=== PATIENT | female | born 1985 | race African-American/Black ===

== ENCOUNTER 2020-03-25 17:11 | Emergency (ER) | payer OTHER, SELFPAY ==
[2020-03-25 17:12] VITALS: BP 172/94; PULSE 99; RESP 16; TEMP 37.6; O2SAT 97
--- NOTE | 2020-03-25 17:16 | ED.SKABFB ---
HPI - Skin/Abscess/Foreign Bdy General Chief complaint: Skin/Abscess/Foreign Body Stated complaint: Bilateral Ear Pain Time Seen by Provider: 03/25/20 17:16 Source: patient Mode of arrival: ambulatory Limitations: no limitations History of Present Illness HPI narrative: Patient is a 35-year-old who presents for evaluation of bilateral earring problem. Patient had the top of her cartilage of both ears pierced at the end of February, has been rotating the backs of the earrings, but is now unable to remove the earrings because she thinks some skin has overgrown the backs. Patient does not have a history of keloid formation. She does not have actual ear pain or discharge. No bleeding from the site. Patient is requesting her earrings be removed. Related Data Allergies Allergy/AdvReac Type Severity Reaction Status Date / Time Penicillins Allergy Mild swelling Verified 03/24/20 13:38 and rash shellfish derived Allergy Mild swelling Verified 03/24/20 13:38 and rash Review of Systems Review of Systems: Narrative: CONSTITUTIONAL: Denies fever CARDIOVASCULAR: Denies chest pain RESPIRATORY: Denies cough GASTROINTESTINAL: Denies abdominal pain SKIN: Denies rash MUSCULOSKELETAL: Denies back pain NEUROLOGIC: Denies headache PMFSH Past Medical History Medical History Asthma Gestational hypertension Surgical History Surgical History (Updated 03/25/20 @ 17:29 by Danika Colon MD) Hx of section Family History Family History (Updated 03/24/20 @ 14:29 by Eve Lambert MD) Mother Family history of multiple sclerosis, Onset Age: 50 Father Hypertension Grandparent Breast cancer Social History Social History Social History: but at the moment Smoking status: Never smoker Second hand tobacco smoke exposure: No Alcohol intake: current Drinks per week: 1 Substance use: never Substance use type: does not use Additional living arrangements comments: pt lives with her children Gender identity (if verbalized by the patient): Female Exam Narrative: Exam Narrative: GENERAL: Awake, alert, conversant HEAD: Normocephalic, atraumatic. EYES: PERRLA and EOMI. ENT: Nares clear, no rhinorrhea or epistaxis. Mucous membranes moist. Earring back, partially embedded in upper ear cartilage. No discharge, no bleeding. No wounds. No edema of the pinna. NECK: Supple. CHEST: No respiratory distress, breathing even and non labored HEART: Regular rate, sinus rhythm ABDOMEN:Non distended, non tender EXTREMITIES: Normal range of motion. No edema. SKIN: Warm, dry, no rash. NEURO:No focal deficits. Alert and oriented x3 Course Vital Signs Vital signs: Vital Signs Temperature 37.6 C 03/25/20 17:12 Pulse Rate 99 03/25/20 17:12 Respiratory Rate 16 03/25/20 17:12 Blood Pressure 172/94 H 03/25/20 17:12 Pulse Oximetry 97 03/25/20 17:12 Temperature 37.6 C 03/25/20 17:12 Pulse Rate 99 03/25/20 17:12 Respiratory Rate 16 03/25/20 17:12 Blood Pressure 172/94 H 03/25/20 17:12 Pulse Oximetry 97 03/25/20 17:12 Procedures Nerve Block Nerve Block 1: Nerve block date: 03/25/20 Nerve block time: 17:31 Time out performed: Yes Local Anesthetic: lidocaine 1% Amount of anesthesia used (mL): 2 Side: left and right Nerve Blocks: other (temporal auricular nerve block) Procedure Successful: Yes Patient Tolerated Procedure: well and no complications Complications: none MDM - Skin/Abscess/Foreign Bdy MDM Narrative Medical decision making narrative: Patient presented with embedded earring backs on bilateral upper ear piercings. We performed catholic auricular block, and they were able to remove these embedded earring backs. No sign of infection. Patient advised to keep wound area clean
== END 2020-03-25 17:57 | disposition home or self-care (01) ==
LOC: ANHED 17:34
PROVIDERS: Emergency Provider Emergency Medicine; PCP Family Medicine
DX: S01.342A Puncture wound with foreign body of left ear, initial encounter (principal); S01.341A Puncture wound with foreign body of right ear, initial encounter; X58.XXXA Exposure to other specified factors, initial encounter; J45.909 Unspecified asthma, uncomplicated
CPT/HCPCS: 64999; 99282

== ENCOUNTER 2020-12-19 20:50 | Emergency (ER) | payer OTHER, SELFPAY ==
--- NOTE | ~2020-12-19 | XR_ITS ---
XR chest 2V DATE: 12/19/2020 22:33 INDICATION: Cough and fever for 2 days. Shortness of breath. History of asthma. TECHNIQUE: PA and lateral views COMPARISON: 08/08/2016 CT pulmonary scan FINDINGS: Normal heart size. No hilar or mediastinal enlargement. Mild atelectasis or infiltrate is suggested at the lung bases. Otherwise no pulmonary infiltrate or c onsolidation, pleural effusion or pulmonary vascular congestion or pneumothorax is evident otherwise. IMPRESSION: Mild infiltrate or atelectasis at both lung bases Reviewed, dictated and finalized at location A.
[2020-12-19 20:57] VITALS: BP 145/97; PULSE 108; RESP 17; TEMP 37.3; O2SAT 98
--- NOTE | 2020-12-19 21:04 | PC.NURSE ---
Pt presents to ED with complaint of body aches and chills that initially onset on Monday. Pt states she has also been experiencing sob and cough with deep inhalation. Pt denies sick contacts, nvd, fever and chest pain at this time. Pt admits to hx of asthma and denies use of inhaler at this time. O2 saturation 96% on room air and breathing noted to be even and unlabored. 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 Pt noted to be alert and oriented x4 and in no obvious distress.
[2020-12-19 21:10] VITALS: BP 130/86; PULSE 109; RESP 18; TEMP 38.4; O2SAT 96
--- NOTE | 2020-12-19 21:53 | PC.NURSE ---
EDMD presented to bedside.
--- NOTE | 2020-12-19 22:17 | PC.NURSE ---
Covid specimen collected and sent to lab.
[2020-12-19] MEDS: ACETAMINOPHEN 500 MG TABLET 1000 MG PO (22:24)
--- NOTE | 2020-12-19 22:29 | PC.NURSE ---
Pt to xray via wheelchair.
[2020-12-19 22:33] LABS: Basophils Percent Auto 0.2 % (0.2-1.2); Hematocrit 38.6 % (37.0-47.0); Hemoglobin 12.5 g/dL (12.0-15.0); Immature Granulocyte Absolute 0.01 K/mm3 (0.00-0.031); Immature Granulocyte Percent A 0.2 % (0-0.5); Lymphocytes Absolute Auto 1.27 K/mm3 (0.9-3.2); Lymphocytes Percent Auto 31.5 % (18.3-44.2); Mean Corpuscular HGB Conc 32.4 g/dl (32-36); Mean Corpuscular Hemoglobin 27.5 pg (26-34); Mean Platelet Volume 10.7 fl (7.4-10.4); Monocytes Absolute Auto 0.4 K/mm3 (0.1-0.6); Monocytes Percent Auto 9.7 % (2.6-8.5); Neutrophils Absolute Auto 2.3 K/mm3 (1.3-6.7); Neutrophils Percent Auto 57.4 % (45.5-73.1); Platelet Count Result 198 k/mm3 (150-375); Red Blood Count 4.54 M/mm3 (4.2-5.4)
--- NOTE | 2020-12-19 23:06 | ED.GENADULT ---
HPI - General Adult General Chief complaint: Unspecified Stated complaint: sore throat, chills Time Seen by Provider: 12/19/20 21:24 Source: patient Mode of arrival: ambulatory Limitations: no limitations History of Present Illness HPI narrative: 35-year-old female History of hypertension on hydrochlorothiazide Importantly she has not been immunized against COVID-19 She complains of a 1 day history of chest tightness dry cough low-grade fever sore throat and chills She has not found her sense of taste to be affected at this point She has no GI symptoms and no symptoms Related Data Allergies Allergy/AdvReac Type Severity Reaction Status Date / Time Penicillins Allergy Mild swelling Verified 12/19/20 20:57 and rash shellfish derived Allergy Mild swelling Verified 12/19/20 20:57 and rash Review of Systems Review of Systems: All systems reviewed & are unremarkable except as noted in HPI and below Constitutional: Constitutional: Reports no additional constitutional complaints, Denies chills, Reports fever(s) and Denies headache(s) Eyes: Eyes: Reports no additional eye complaints and Denies change in vision ENT: Denies headache(s) and Reports sore throat Cardiovascular: Cardiovascular: Denies chest pain and Reports dyspnea Respiratory: Respiratory: Reports cough and Reports dyspnea Gastrointestinal: Gastrointestinal: Denies abdominal pain, Denies diarrhea and Denies vomiting Genitourinary: Genitourinary: Denies urinary frequency and Denies dysuria Musculoskeletal: Musculoskeletal: Denies deformity, Denies arthralgias, Denies joint swelling and Denies numbness Integumentary/Breasts: Skin/Breast: Denies rash and Denies wounds Neurologic: Denies headache(s), Denies focal weakness and Denies numbness Psychiatric: Psychiatric: Reports no additional psychiatric complaints Endocrine: Endocrine: Reports no additional endocrine complaints Hematologic/Lymphatic: Hematologic/Lymphatic: Reports no additional hematologic/lymphatic complaints Allergic/Immunologic: Allergic/Immunologic: Reports no additional allergic/immunologic complaints [facility] Past Medical History Medical History (Updated 12/19/20 @ 23:05 by Raulito Serra MD) Asthma Gestational hypertension Surgical History Surgical History Hx of section Family History Family History Mother Family history of multiple sclerosis, Onset Age: 50 Father Hypertension Grandparent Breast cancer Social History Social History (Updated 10/09/20 @ 07:41 by Felicitas Blanc CMA) Social History: but at the moment Smoking status: Never smoker Second hand tobacco smoke exposure: No Alcohol intake: current Drinks per week: 1 Substance use: never Substance use type: does not use Additional living arrangements comments: pt lives with her children Gender identity (if verbalized by the patient): Female Exam Const: General: cooperative and no acute distress Orientation/consciousness: patient oriented x3 (alert) HENMT: Head: normal to inspection, normocephalic and atraumatic Ears: external ears normal and TM's normal bilaterally General nose exam: no epistaxis Mouth: Yes oropharynx normal and Yes moist mucous membranes Eyes: Conjunctivae: conjunctivae normal EOM: EOMs intact bilaterally Neck: Neck: normal visual inspection, supple and no JVD Resp: Effort & Inspection: normal respiratory effort and not labored Auscultation: no rales, no rhonchi, no wheezes and other (BS =) Cardio: Rate: regular rate Rhythm: regular rhythm Heart sounds: no murmurs GI: GI Palp: Yes Soft to palpation and No Tenderness to palpation present (GI) Skin: General skin exam: normal color and no rashes or lesions noted Neuro: General: patient oriented x3 (alert) and moves all extremities Speech: no
[2020-12-19 23:07] VITALS: TEMP 37.3
--- NOTE | 2020-12-19 23:10 | PC.NURSE ---
Pt resting on cart talking on phone to mom. Pt denies all pain and discomfort at this time and afebrile with temp of 99.1. Pt advised to press call button for assistance.
[2020-12-19 23:29] VITALS: BP 139/93; PULSE 92; RESP 21; TEMP 37.7; O2SAT 98
[2020-12-19 23:30] VITALS: BP 139/93; PULSE 92; RESP 21; TEMP 37.7; O2SAT 98
[2020-12-21 18:48] LABS: SARS-CoV-2 RNA PCR Positive
== END 2020-12-19 23:38 | disposition home or self-care (01) ==
PROVIDERS: Emergency Provider Emergency Medicine; PCP Family Medicine
DX: U07.1 COVID-19 (principal); J45.909 Unspecified asthma, uncomplicated
CPT/HCPCS: 36415; 71046; 85025; 99283; A9270; C9803; U0003; U0005

== ENCOUNTER 2022-03-25 11:21 | Outpatient (CLI) | payer OTHER, SELFPAY ==
--- NOTE | ~2022-03-25 | US_ITS ---
EXAMINATION: US transvaginal DATE: 03/25/2022 11:40 INDICATION: Other specified noninflammatory disorders of the cervix, menorrhagia TECHNIQUE: Multiple endovaginal sonographic images of the pelvis were obtained. COMPARISON: 10/05/2017 FINDINGS: The uterus measures 9.9 x 6 x 7.2 cm. The endometrial complex measures 7 mm. The right ovar y measures 3.5 x 1.7 x 1.8 cm. The left ovary measures 2.6 x 1.5 x 2 cm. There is normal vascular grupo w in the ovaries. There is no free fluid in the pelvis. IMPRESSION: 1. No sonographic correlate for the patient's symptoms. Reviewed, dictated and finalized at location A.
== END 2022-03-25 11:22 ==
LOC: MICIMG 11:22
PROVIDERS: PCP Family Medicine; Visit Provider Family Medicine
DX: N88.8 Other specified noninflammatory disorders of cervix uteri (principal)
CPT/HCPCS: 76830

== ENCOUNTER 2022-09-11 08:35 | Emergency (ER) | payer OTHER, SELFPAY ==
[2022-09-11 08:43] VITALS: BP 143/78; PULSE 118; RESP 18; TEMP 38.1; O2SAT 97
[2022-09-11] MEDS: ONDANSETRON HCL ODT 4 MG TABLET PO (08:58)
[2022-09-11] MEDS: KETOROLAC (*BKC) 60 MG/2 ML VIAL IM (08:58)
[2022-09-11 09:19] LABS: Strep Group A RT-PCR DETECTED (Negative)
[2022-09-11 09:37] LABS: Influenza A QL RT-PCR Negative (Negative); Influenza B QL RT-PCR Negative (Negative); SARS-CoV-2 RNA PCR Negative
--- NOTE | 2022-09-11 09:44 | ED.GENADULT ---
HPI - General Adult General Chief complaint: Unspecified Stated complaint: fever Time Seen by Provider: 09/11/22 08:48 Source: patient and RN notes reviewed Mode of arrival: ambulatory Limitations: no limitations History of Present Illness HPI narrative: This is a 37 year old female who presents for evaluation of sore throat. She states yesterday she developed nausea, vomiting and body aches. She woke up with sore throat and pain with swallowing today. She last took ibuprofen last night. She denies any vomiting today. She denies cough, abdominal pain or diarrhea. Her son was found to be positive for strep and flu last week. Related Data Allergies Allergy/AdvReac Type Severity Reaction Status Date / Time Penicillins Allergy Mild swelling Verified 09/11/22 08:49 and rash shellfish derived Allergy Mild swelling Verified 09/11/22 08:49 and rash Review of Systems Constitutional: Constitutional: Reports body ache(s), Reports fever(s) and Denies weakness ENT: Reports sore throat Cardiovascular: Cardiovascular: Denies syncope, Denies rapid heart rate, Denies irregular heart rhythm, Denies leg edema and Denies dyspnea Respiratory: Respiratory: Denies chest congestion, Denies hemoptysis, Denies excessive phlegm production and Denies dyspnea Gastrointestinal: Gastrointestinal: Denies abdominal pain, Denies hematochezia, Denies diarrhea, Reports nausea and Reports vomiting Genitourinary: Genitourinary: Denies hematuria and Denies dysuria Musculoskeletal: Musculoskeletal: Denies joint swelling, Denies loss of height and Denies muscle weakness Neurologic: Denies syncope, Denies focal weakness and Denies weakness PMF Past Medical History Medical History (Updated 09/11/22 @ 09:57 by Johanna Fall MD) Asthma Cluster headache syndrome, not intractable COVID-19 Dizziness Essential (primary) hypertension Female gynecomastia FHx: brain cancer Gestational hypertension Iron deficiency anemia due to chronic blood loss Longitudinal melanonychia Major depressive disorder, single episode, moderate Pneumonia due to COVID-19 virus Severe obesity (BMI 35.0-35.9 with comorbidity) Weight gain Surgical History Surgical History Hx of section Family History Family History Mother Family history of multiple sclerosis, Onset Age: 50 Father Hypertension Grandparent Breast cancer Social History Social History (Updated 05/20/22 @ 09:28 by Lianet Iraheta) Social History: Smoking status: Never smoker Second hand tobacco smoke exposure: No Alcohol intake: current Alcohol use details: Occasionally Substance use: never Substance use type: does not use Living arrangements: with family Occupation/Education: occupation Gender identity (if verbalized by the patient): Female Sexual Orientation (if Verbalized by the Patient): Straight or Heterosexual Exam Const: General: cooperative, healthy appearing, comfortable, no acute distress and alert Orientation/consciousness: patient oriented x3 Limitations: no limitations HENMT: Head: normal to inspection Ears: hearing grossly normal bilaterally and TM's normal bilaterally Face/Nose/Sinus: Normal external nose present Face and sinus: normal facial exam, sinuses nontender and face symmetric Mouth: Yes lip normal, Yes tongue normal and Yes moist mucous membranes Teeth and gingiva: dentition normal Throat: uvula midline and abnormal tonsil bilateral erythema and exudates Eyes: General: appearance normal, both eyes and all related structures EOM: EOMs intact bilaterally Chest: Chest palpation & inspection: normal inspection of the chest Resp: Effort & Inspection: normal respiratory effort and able to speak in complete sentences Auscultation: clear to auscultation bilaterally Cardio: Jugular venous distension: no JVD Back/Spine
[2022-09-11] MEDS: AZITHROMYCIN 250 MG TABLET 500 MG PO (09:57)
[2022-09-11 10:08] VITALS: BP 128/78; PULSE 93; RESP 16; O2SAT 96
== END 2022-09-11 10:14 | disposition home or self-care (01) ==
PROVIDERS: Emergency Provider General Practice; PCP Family Medicine
DX: J02.0 Streptococcal pharyngitis (principal); Z20.822 Contact with and (suspected) exposure to COVID-19; J45.909 Unspecified asthma, uncomplicated; I10 Essential (primary) hypertension; D50.0 Iron deficiency anemia secondary to blood loss (chronic); E66.01 Morbid (severe) obesity due to excess calories; Z68.33 Body mass index [BMI] 33.0-33.9, adult; Z86.16 Personal history of COVID-19; Z87.01 Personal history of pneumonia (recurrent)
CPT/HCPCS: 87636; 87651; 96372; 99284; A9270; J1100; J1885

== ENCOUNTER 2023-03-09 20:59 | Emergency (ER) | payer OTHER, SELFPAY ==
--- NOTE | ~2023-03-09 | XR_ITS ---
EXAMINATION: XR chest 2V DATE: 03/09/2023 21:26 INDICATION: Left-sided chest pain TECHNIQUE: PA and lateral views of the chest are obtained. COMPARISON: 12/19/2020 FINDINGS: The lungs are free of acute opacities. No pleural effusion or pneumothorax. The cardiomedia stinal silhouette is normal. There is mild thoracic spondylosis. IMPRESSION: 1. No acute cardiopulmonary abnormality. Reviewed, dictated and finalized at location F.
--- NOTE | 2023-03-09 21:00 | ECG_ITS ---
Measurements Intervals [place] Rate: 84 P: 51 TX: 147 QRS: 14 QRSD: 102 T: 15 QT: 369 QTc: 437 Interpretive Statements SINUS RHYTHM NORMAL ELECTROCARDIOGRAM NO PREVIOUS ECG AVAILABLE FOR COMPARISON Electronically Signed On 03-10-2023 12:56:09 CDT by Christopher Medellin M.D.
[2023-03-09 21:13] VITALS: BP 140/102; PULSE 84; RESP 15; TEMP 36.6; O2SAT 97
[2023-03-09 21:27] LABS: Basophils Percent Auto 0.4 % (0.2-1.2); Eosinophils Absolute Auto 0.3 K/mm3 (0-0.3); Eosinophils Percent Auto 3.5 % (0-4.4); Hematocrit 35.9 % (37.0-47.0); Hemoglobin 11.3 g/dL (12.0-15.0); Immature Granulocyte Absolute 0.02 K/mm3 (0.00-0.031); Immature Granulocyte Percent A 0.2 % (0-0.5); Lymphocytes Absolute Auto 2.87 K/mm3 (0.9-3.2); Lymphocytes Percent Auto 29.3 % (18.3-44.2); Mean Corpuscular HGB Conc 31.5 g/dl (32-36); Mean Corpuscular Hemoglobin 27.1 pg (26-34); Mean Corpuscular Volume 86.1 fl (80-100); Mean Platelet Volume 9.6 fl (7.4-10.4); Monocytes Percent Auto 9.8 % (2.6-8.5); Neutrophils Absolute Auto 5.6 K/mm3 (1.3-6.7); Neutrophils Percent Auto 56.8 % (45.5-73.1); Platelet Count Result 313 k/mm3 (150-375); Red Blood Count 4.17 M/mm3 (4.2-5.4); Red Cell Distribution Width 15.9 % (11.5-14.5); White Blood Count 9.8 K/mm3 (4.5-10.0)
[2023-03-09 21:41] LABS: Alanine Aminotransferase 17 U/L (6-35); Albumin Level 4.3 g/dL (3.5-5.1); Alkaline Phosphatase 66 U/L (38-126); Anion Gap 7 mmol/L (8-16); Aspartate Amino Transferase 28 U/L (14-36); Bilirubin,Total 0.4 mg/dL (0.2-1.3); Blood Urea Nitrogen 16 mg/dL (7-17); Calcium 8.9 mg/dL (8.4-10.2); Carbon Dioxide 29 mmol/L (22-30); Chloride 103 mmol/L (98-107); Estimated CRCL calculation 89 ml/min; Estimated Glomerular Filt Rate > 60; Glucose 88 mg/dL (65-110); Lipase 110 U/L (23-300); Potassium 3.3 mmol/L (3.4-5.0); Sodium 139 mmol/L (137-145)
[2023-03-09 21:47] LABS: Partial Thromboplastin Time 27.6 SECONDS (22.3-36.8); Prothrombin Time 13.2 Seconds (11.1-14.7)
[2023-03-09 21:53] LABS: Troponin I < 0.012 ng/mL (0.000-0.034)
[2023-03-09 22:00] VITALS: PULSE 74
[2023-03-09] MEDS: ASPIRIN 81 MG CHEWABLE TABLET 324 MG PO (22:28)
[2023-03-09] MEDS: KETOROLAC 30 MG/ML VIAL (*BKC) IV PUSH (22:28)
--- NOTE | 2023-03-09 22:55 | ED.GENADULT ---
HPI - General Adult General Chief complaint: Chest Pain Stated complaint: chest pain Time Seen by Provider: 03/09/23 22:08 History of Present Illness HPI narrative: Patient is a 38-year-old female who presents emerged department with chief complaint of chest pain patient reports that she started having a sharp pleuritic pain in the left side of her chest reports is worse with inspiration and improved with rest. Patient states she had no trauma reports no prior cardiac history does have a history of hypertension. Related Data Allergies Allergy/AdvReac Type Severity Reaction Status Date / Time Penicillins Allergy Mild swelling Verified 03/09/23 22:30 and rash shellfish derived Allergy Mild swelling Verified 03/09/23 22:30 and rash Review of Systems Review of Systems: A 10 system review of systems was completed on the patient and is negative except for what is stated in the HPI. Nursing and ancillary documentation was reviewed. [facility] Past Medical History Medical History Asthma Cluster headache syndrome, not intractable COVID-19 Dizziness Essential (primary) hypertension Female gynecomastia FHx: brain cancer Gestational hypertension Iron deficiency anemia due to chronic blood loss Longitudinal melanonychia Major depressive disorder, single episode, moderate Pneumonia due to COVID-19 virus Severe obesity (BMI 35.0-35.9 with comorbidity) Weight gain Surgical History Surgical History Hx of section Family History Family History Mother Family history of multiple sclerosis, Onset Age: 50 Father Hypertension Grandparent Breast cancer Social History Social History Social History: Smoking status: Never smoker Second hand tobacco smoke exposure: No Alcohol intake: current Alcohol use details: Occasionally Substance use: never Substance use type: does not use Lack of Transportation: No Lack of Food: Never True Current Housing: I Have Housing Concerned About Future Housing: No Difficulty Paying Gas/Electric Bills: No Difficulty Paying for Meds: No Currently Unemployed: No Education: Decline to Answer Difficulty w/ Childcare or Family Care: No Living arrangements: with family Occupation/Education: occupation Gender identity (if verbalized by the patient): Female Sexual Orientation (if Verbalized by the Patient): Straight or Heterosexual Exam Narrative: GENERAL: Well-appearing, well-nourished, and in no acute distress. HEAD: Normocephalic, atraumatic. EYES: PERRLA and EOMI. ENT: Nares clear, no rhinorrhea or epistaxis. Mucous membranes moist. NECK: Supple. CHEST: Clear to auscultation. No respiratory distress. Chest wall is tender to palpation in the left sternal border HEART: Regular rate and rhythm. No murmur heard. Normal peripheral pulses. ABDOMEN: Soft, nontender, nondistended, normal active bowel sounds. EXTREMITIES: Normal range of motion. No edema. SKIN: Warm, dry, no rash. NEURO: No focal deficits. Alert and oriented x3. PSYCH: Normal mood and affect. Course Vital Signs Vital signs: Vital Signs Temperature 36.6 C 03/09/23 21:13 Pulse Rate 84 03/09/23 21:13 Respiratory Rate 15 03/09/23 21:13 Blood Pressure 140/102 H 03/09/23 21:13 Pulse Oximetry 97 03/09/23 21:13 Oxygen Delivery Room Air 03/09/23 21:13 Temperature 36.6 C 03/09/23 21:13 Pulse Rate 74 03/10/23 00:37 Respiratory Rate 17 03/10/23 00:37 Blood Pressure 129/74 03/10/23 00:37 Pulse Oximetry 98 03/10/23 00:37 Oxygen Delivery Room Air 03/09/23 22:02 Medical Decision Making [facility] Narrative Medical decision making narrative: Differential diagnosis includes chest wal
[2023-03-10 00:37] VITALS: BP 129/74; PULSE 74; RESP 17; O2SAT 98
[2023-03-10 00:51] LABS: Troponin I < 0.012 ng/mL (0.000-0.034)
== END 2023-03-10 01:52 | disposition home or self-care (01) ==
PROVIDERS: Emergency Provider Emergency Medicine; PCP Family Medicine
DX: R07.89 Other chest pain (principal); J45.909 Unspecified asthma, uncomplicated
CPT/HCPCS: 36415; 71046; 80053; 83690; 84484; 85025; 85610; 85730; 93005; 96374; 99284; A9270; J1885

== ENCOUNTER 2023-09-04 23:28 | Emergency (ER) | payer OTHER, SELFPAY ==
--- NOTE | ~2023-09-04 | XR_ITS ---
Clinical Indication: Shortness of breath PA and lateral views of the chest: Comparison: 03/09/2023 Findings: The lungs are clear, without evidence of focal consolidation or pleural effusion. Cardiome diastinal silhouette is within normal limits. Bones and soft tissues are unremarkable. Impression: Normal chest. Reviewed, dictated and finalized at [facility]. ENTATION DESIGNER Impression: Normal chest.
[2023-09-04 23:38] VITALS: BP 140/96; PULSE 73; RESP 18; TEMP 36.8; O2SAT 98
--- NOTE | 2023-09-04 23:44 | ECG_ITS ---
Measurements Intervals [place] Rate: 72 P: 49 ND: 152 QRS: 7 QRSD: 99 T: 3 QT: 376 QTc: 411 Interpretive Statements SINUS RHYTHM VOLTAGE CRITERIA FOR LVH NONSPECIFIC T-WAVE ABNORMALITY- ANTERIOR LEADS BORDERLINE ECG COMPARED TO ECG 03/09/2023 21:08:16 NO SIGNIFICANT CHANGES Electronically Signed On 09-05-2023 6:26:25 OPERATOR ASSISTANT I CEMENTING by Chip Yu D.O.
--- NOTE | 2023-09-04 23:58 | PC.NURSE ---
Pt refused COVID swab, stating I know I dont have COVID
[2023-09-05 00:08] LABS: Basophils Absolute Auto 0.1 K/mm3 (0.0-0.1); Basophils Percent Auto 0.7 % (0.2-1.2); Eosinophils Absolute Auto 0.3 K/mm3 (0-0.3); Eosinophils Percent Auto 4.2 % (0-4.4); Hematocrit 36.7 % (37.0-47.0); Hemoglobin 11.3 g/dL (12.0-15.0); Immature Granulocyte Absolute 0.01 K/mm3 (0.00-0.031); Immature Granulocyte Percent A 0.1 % (0-0.5); Lymphocytes Absolute Auto 2.83 K/mm3 (0.9-3.2); Lymphocytes Percent Auto 41.2 % (18.3-44.2); Mean Corpuscular HGB Conc 30.8 g/dl (32-36); Mean Corpuscular Hemoglobin 26.8 pg (26-34); Mean Corpuscular Volume 87.2 fl (80-100); Mean Platelet Volume 10.1 fl (7.4-10.4); Monocytes Absolute Auto 0.5 K/mm3 (0.1-0.6); Monocytes Percent Auto 6.6 % (2.6-8.5); Neutrophils Absolute Auto 3.2 K/mm3 (1.3-6.7); Neutrophils Percent Auto 47.2 % (45.5-73.1); Platelet Count Result 282 k/mm3 (150-375); Red Blood Count 4.21 M/mm3 (4.2-5.4); Red Cell Distribution Width 16.1 % (11.5-14.5); White Blood Count 6.9 K/mm3 (4.5-10.0)
[2023-09-05 00:20] LABS: Alanine Aminotransferase 16 U/L (6-35); Albumin Level 3.8 g/dL (3.5-5.1); Alkaline Phosphatase 78 U/L (38-126); Anion Gap 7 mmol/L (8-16); Aspartate Amino Transferase 21 U/L (14-36); Bilirubin,Total 0.4 mg/dL (0.2-1.3); Blood Urea Nitrogen 8 mg/dL (7-17); Calcium 8.8 mg/dL (8.4-10.2); Carbon Dioxide 23 mmol/L (22-30); Chloride 108 mmol/L (98-107); Estimated CRCL calculation 115 ml/min; Estimated Glomerular Filt Rate > 60; Glucose 112 mg/dL (65-110); Potassium 3.3 mmol/L (3.4-5.0); Sodium 138 mmol/L (137-145)
[2023-09-05 02:16] VITALS: BP 141/99; PULSE 79; RESP 18; O2SAT 100
[2023-09-05 02:17] VITALS: PULSE 72
--- NOTE | 2023-09-05 02:18 | ED.GENADULT ---
HPI - General Adult General Chief complaint: Shortness of Breath/Dyspnea Stated complaint: SOB Time Seen by Provider: 09/05/23 01:59 History of Present Illness HPI narrative: this is a 38-year-old female presenting with chief complaint of shortness of breath. Patient says started yesterday while she was trying to go to bed. It is a tightness across her chest. It is 6/10 intensity comes and goes. She has had this multiple times in the past since she had COVID in 2020. It typically improves with breathing treatments. She does not have any breathing treatments at home. She denies fever chills cough nausea vomiting diarrhea, abdominal pain or lower extremity edema. Related Data Allergies Allergy/AdvReac Type Severity Reaction Status Date / Time Penicillins Allergy Mild swelling Verified 07/06/23 08:39 and rash shellfish derived Allergy Mild swelling Verified 07/06/23 08:39 and rash PMFSH Past Medical History Medical History Anal irritation Asthma Cluster headache syndrome, not intractable COVID-19 Dizziness Essential (primary) hypertension Female gynecomastia FHx: brain cancer Gestational hypertension Iron deficiency anemia due to chronic blood loss Longitudinal melanonychia Major depressive disorder, single episode, moderate Menorrhagia Pneumonia due to COVID-19 virus Severe obesity (BMI 35.0-35.9 with comorbidity) Strep throat Stress at home Thrush, oral Vaginal suzy Weight gain Well woman exam with routine gynecological exam Surgical History Surgical History Hx of section Family History Family History Mother Family history of multiple sclerosis, Onset Age: 50 Father Hypertension Grandparent Breast cancer Social History Social History Social History: Smoking status: Never smoker Second hand tobacco smoke exposure: No Alcohol intake: current Alcohol use details: Occasionally Substance use: never Substance use type: does not use Lack of Transportation: No Lack of Food: Never True Current Housing: I Have Housing Concerned About Future Housing: No Difficulty Paying Gas/Electric Bills: No Difficulty Paying for Meds: No Currently Unemployed: No Education: Decline to Answer Difficulty w/ Childcare or Family Care: No Living arrangements: with family Occupation/Education: occupation 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 polite and pleasant during the interview Head: atraumatic. EYES: EOMI, NOSE: Atraumatic NECK: Trachea midline RESPIRATORY: No increased rate of breathing , speaking in full sentences, clear auscultation CARDIOVASCULAR: RRR, no peripheral edema ABDOMINAL: Non-distended MUSCULOSKELETAl: No obvious deformities NEURO: Alert. Moving 4/4 extremities SKIN:: Warm, dry. Normal color PSYCHIATRIC: Normal affect Course Vital Signs Vital signs: Vital Signs Temperature 98.2 F 09/04/23 23:38 Pulse Rate 73 09/04/23 23:38 Respiratory Rate 18 09/04/23 23:38 Blood Pressure 140/96 H 09/04/23 23:38 Pulse Oximetry 98 09/04/23 23:38 Oxygen Delivery Room Air 09/04/23 23:38 Temperature 98.2 F 09/04/23 23:38 Pulse Rate 72 09/05/23 02:17 Respiratory Rate 18 09/05/23 02:16 Blood Pressure 141/99 H 09/05/23 02:16 Pulse Oximetry 100 09/05/23 02:16 Oxygen Delivery Room Air 09/05/23 02:16 Medical Decision Making MDM Narrative Medical decision making narrative: -Course: 38-year-old female presenting shortness of breath. No objective signs of dyspnea on physical exam or vi
[2023-09-05 02:30] VITALS: PULSE 63; RESP 22
[2023-09-05] MEDS: ALBUTEROL SULFATE NEB 2.5 MG/3 ML INH 5 MG INHALATION (02:30)
[2023-09-05] MEDS: IPRATROPIUM BR 0.02% INH SOLN 0.5 MG/2.5 ML VIAL 1 MG INHALATION (02:30)
[2023-09-05 02:56] VITALS: PULSE 73; RESP 20
[2023-09-05 03:15] VITALS: BP 156/98; PULSE 86; RESP 19; O2SAT 98
== END 2023-09-05 03:15 | disposition home or self-care (01) ==
LOC: ANHED 09-05 02:30
PROVIDERS: Emergency Provider Emergency Medicine; PCP Family Medicine
DX: R06.00 Dyspnea, unspecified (principal); I10 Essential (primary) hypertension
CPT/HCPCS: 36415; 71046; 80053; 85025; 93005; 94640; 96374; 99284; J1100

== ENCOUNTER 2023-09-28 10:05 | Outpatient (CLI) | payer OTHER, SELFPAY ==
--- NOTE | ~2023-09-28 | XR_ITS ---
Clinical Indication: Cough PA and lateral views of the chest: Comparison: 09/05/2023 Findings: The lungs are clear, without evidence of focal consolidation or pleural effusion. Cardiome diastinal silhouette is within normal limits. Bones and soft tissues are unremarkable. Impression: Normal chest. Reviewed, dictated and finalized at [facility]. ENTARY SCHOOL BAND DIRECTOR Impression: Normal chest.
== END 2023-09-28 10:06 ==
PROVIDERS: PCP Family Medicine; Visit Provider Family Medicine
DX: R05.9 Cough, unspecified (principal)
CPT/HCPCS: 71046

== ENCOUNTER 2024-03-22 09:00 | Outpatient (CLI) | payer OTHER, SELFPAY ==
[2024-03-22 10:24] LABS: Anion Gap 10 mmol/L (4-12); Blood Urea Nitrogen 7 mg/dL (7-17); Carbon Dioxide 28 mmol/L (22-30); Chloride 102 mmol/L (98-107); Estimated Glomerular Filt Rate > 60; Glucose 89 mg/dL (65-110); Potassium 3.4 mmol/L (3.4-5.0); Sodium 140 mmol/L (137-145)
== END 2024-03-22 09:01 | disposition home or self-care (01) ==
PROVIDERS: Anesthesiology; PCP Family Medicine; Visit Provider Obstetrics & Gynecology
DX: N92.0 Excessive and frequent menstruation with regular cycle (principal); T50.2X5A Adverse effect of carbonic-anhydrase inhibitors, benzothiadiazides and other diuretics, initial encounter
CPT/HCPCS: 36415; 80048; 86850; 86900; 86901

== ENCOUNTER 2024-03-27 00:29 | Day surgery (SDC) | payer OTHER, SELFPAY ==
--- NOTE | 2024-03-20 18:48 | PC.NURSE ---
Report to the Outpatient Waiting Room, entrance under the green pavilion located off [facility], at 0600 on 03-27-24. Planned Procedure Time: 0730. Time changes happen often and if your time is changed the preop area will call you the afternoon before. - You and your visitor will be asked to self-screen and do not enter if you have any COVID symptoms. - A mask is optional within the hospital at this time. Patients may have clear liquids (water, carbonated beverages, clear teas, apple juice) until 3 hours prior to surgery with a maximum of 20 ounces. 0430 - No food from midnight until time of surgery - Infants may have breast milk until 4 hours before surgery, formula 6 hours prior to surgery. - Children will be allowed to drink immediately following surgery. If applicable, please bring a bottle or sippy cup to assist with drinking. Juice, water, soda, and popsicles are readily available. For infants on formula, please bring formula the day of surgery. Pacifiers are allowed. Take the following medications with a SIP of water the morning of surgery: None Bring rescue inhalers to hospital day of surgery DO NOT STOP ANY OF YOUR OTHER PRESCRIPTION MEDICATIONS PRIOR TO SURGERY ?EXCEPT THE FOLLOWING Medications to discontinue per physician: Vitamins and supplements Date to take last dose: 03-25-24 Please no make-up, nail qatari, hairspray, perfume, deodorant, or body powder the day of surgery. No jewelry (including any body piercings) or valuables the day of surgery, leave them at home. Please take a shower or bath the night before, or the morning of, surgery with an antibacterial soap. Wear comfortable, loose fitting clothing. Children are encouraged to wear pajamas. - Jewelry must be removed prior to entering the operating room. Rings and piercings that are not removed may be cut off. - The hospital will not accept responsibility for valuables. - Please leave all valuables, including medications, at home the day of surgery. If you are going home after surgery, a licensed bung driver must drive you home. - NO public transportation without another adult if you receive anesthesia. - We recommend that an adult stay with you for 24 hours following discharge. - We also recommend that you do not drive, make important decision, drink alcoholic beverages, or take any drugs that were not prescribed by your health care provider for at least 24 hours after your discharge time. For Pediatric surgeries, we recommend two adults accompany the child home. Follow any additional instructions given to you from your surgeon. If you or anyone in your household have experienced Covid symptoms in the past week, please notify your surgeon or the nurse liaison at the phone number below for possible testing. Telephone instructions given to Ivania Morris and asked if any additional questions and then verbalized understanding. Patient advised to call surgeon office or pre surgery nurse liaison [phone] if any additional questions.
[2024-03-20 18:59] VITALS: BMI 37.6
[2024-03-27] VITALS (8 sets, daily range): BP systolic 127–148; BP diastolic 72–92; PULSE 70–99; RESP 14–20; TEMP 36.1–36.9; O2SAT 94–100
--- NOTE | ~2024-03-27 | XR_ITS ---
EXAMINATION: XR stent kub - surgery DATE: 03/27/2024 09:55 INDICATION: Bilateral ureteral stent placement TECHNIQUE: Fluoroscopic images from a bilateral ureteral stent placement are submitted for review. 14 seconds of fluoroscopy time. FINDINGS: There are bilateral double-J internal ureteral stent projecting in expected position, with proximal C ope loop at the level of the renal pelvis. The distal aspect of the stents are not visualized.. IMPRESSION: 1. Bilateral internal ureteral stent placement. Please refer to real-time procedural findings for d etails. Reviewed, dictated and finalized at location B. IMPRESSION: 1. Bilateral internal ureteral stent placement. Please refer to real-time pro cedural findings for details.
[2024-03-27] MEDS: ACETAMINOPHEN 500 MG TABLET 1000 MG PO (07:18)
[2024-03-27] MEDS: LACTATED RINGERS 1,000 ML 30 ML IV CONT ×2 (07:20→11:15)
[2024-03-27] MEDS: KETOROLAC 15 MG/ML VIAL (*BKC) IV PUSH (07:27)
--- NOTE | 2024-03-27 08:04 | WPDANESEPPF ---
Anes - Initial Pre Proc Eval Procedure: Operation Date: 03/27/24 08:30 Proposed Procedures p Total Laparoscopic Hysterectomy with Bilateral Salpingectomy - Quinn Nelson MD s Cystoscopy, Bilateral Stent Placement for Abdominal Surgery - Patricia Lin MD Date/Time: 03/27/24 08:04 Surgeon: Quinn Nelson MD Pre Op Diagnosis: menorrhagia Patient Data Age: 39 Gender: F Height: 1.57 m Weight: 89.6 kg Last Vital Signs Temp 97.9 F 03/27/24 06:44 Pulse 93 03/27/24 06:44 Resp 20 03/27/24 06:44 BP 148/90 H 03/27/24 06:44 Pulse Ox 97 03/27/24 06:44 O2 Del Method Room Air 03/27/24 06:44 Allergies Allergy/AdvReac Type Severity Reaction Status Date / Time Penicillins Allergy Mild swelling Verified 03/27/24 07:06 and rash shellfish derived Allergy Mild swelling Verified 03/27/24 07:06 and rash Home Medications Medication Instructions Recorded Confirmed Type albuterol sulfate 90 mcg/actuation 1 inh inhalation QID PRN shortness 09/05/23 03/20/24 Rx aerosol inhaler of breath or wheezing #8.5 grams lubiprostone 8 mcg capsule 8 mcg PO BID #180 caps 02/15/24 03/20/24 Rx (Amitiza) budesonide-formoterol HFA 160 See Rx Instructions .Route 03/20/24 03/27/24 History mcg-4.5 mcg/actuation aerosol .COMPLEX PRN Shortness Of Breath inhaler Or Wheezing famotidine 20 mg tablet (Pepcid) 20 mg PO HS 03/20/24 03/27/24 History triamterene 37.5 1 tablet PO DAILY 03/20/24 03/27/24 History mg-hydrochlorothiazide 25 mg tablet vitamin B complex 1 tablet PO DAILY 03/20/24 03/27/24 History Patient hx anesthesia problems: none Family hx anesthesia problems: none Results Review: All pre-operative results and documents have been reviewed as part of the pre-operative evaluation. [facility] Past Medical History Medical History Acute sinusitis Anal irritation Anemia Asthma BMI 37.0-37.9, adult BMI 38.0-38.9,adult Cluster headache syndrome, not intractable COVID-19 Dizziness Essential (primary) hypertension Female gynecomastia FHx: brain cancer Gestational hypertension Iron deficiency anemia due to chronic blood loss Longitudinal melanonychia Major depressive disorder, single episode, moderate Menorrhagia Pneumonia due to COVID-19 virus Severe obesity (BMI 35.0-35.9 with comorbidity) Shingles Strep throat Stress at home Thrush, oral Vaginal suzy Weight gain Well woman exam with routine gynecological exam Surgical History Surgical History Hx of section Family History Family History Mother Family history of multiple sclerosis, Onset Age: 50 Father Hypertension Grandparent Breast cancer Social History Social History Social History: Smoking status: Never smoker Second hand tobacco smoke exposure: No Alcohol intake: current Alcohol use details: socially 1-2 drinks biweekly maybe Substance use: current Substance use type: marijuana Other substance usage details: edibles and smokes ocassionally Do You Feel Safe in your Home?: Yes Lack of Transportation: No Lack of Food: Never True Current Housing: I Have Housing Concerned About Future Housing: No Difficulty Paying Gas/Electric Bills: No Difficulty Paying for Meds: No Currently Unemployed: No Education: Decline to Answer Difficulty w/ Childcare or Family Care: No Living arrangements: with family Additional living arrangements comments: spouse and children 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
[2024-03-27 08:05] LABS: BEDSIDEPREGUCG Negative
--- NOTE | 2024-03-27 08:06 | WPDHPUPDATE1 ---
History and Physical Update Update Date/Time: 03/27/24 08:06 History and Physical has been reviewed, including an updated exam of the patient. There are NO changes in the patient's condition. Risks, benefits, and alternatives have been discussed and questions answered. Patient agrees to proceed with procedure.
[2024-03-27] MEDS: ceFAZolin SODIUM 1 GM VIAL (08:21)
--- NOTE | 2024-03-27 08:50 | WPDURCON ---
Assessment and Plan Assessment and plan (1) BMI 37.0-37.9, adult: Code(s): Z68.37 - Body mass index [BMI] 37.0-37.9, adult Status: Acute Plan risks, benefits, alternatives reviewed. Plan pre-op stents for ureteral identification to be removed at conclusion of OBGYN procedure Urology Consult Note HPI Date Seen: 03/27/24 Requesting Physician: Quinn Nelson MD Primary Care Provider: Eve Lambert MD Consult Narrative Narrative: Ivania Morris is a 39 year old female who is to undergo hysterectomy - Urology consulted for preop stents PMFSH Past Medical History Medical History Acute sinusitis Anal irritation Anemia Asthma BMI 37.0-37.9, adult BMI 38.0-38.9,adult Cluster headache syndrome, not intractable COVID-19 Dizziness Essential (primary) hypertension Female gynecomastia FHx: brain cancer Gestational hypertension Iron deficiency anemia due to chronic blood loss Longitudinal melanonychia Major depressive disorder, single episode, moderate Menorrhagia Pneumonia due to COVID-19 virus Severe obesity (BMI 35.0-35.9 with comorbidity) Shingles Strep throat Stress at home Thrush, oral Vaginal suzy Weight gain Well woman exam with routine gynecological exam Surgical History Surgical History Hx of section Family History Family History Mother Family history of multiple sclerosis, Onset Age: 50 Father Hypertension Grandparent Breast cancer Social History Social History Social History: Smoking status: Never smoker Second hand tobacco smoke exposure: No Alcohol intake: current Alcohol use details: socially 1-2 drinks biweekly maybe Substance use: current Substance use type: marijuana Other substance usage details: edibles and smokes ocassionally Do You Feel Safe in your Home?: Yes Lack of Transportation: No Lack of Food: Never True Current Housing: I Have Housing Concerned About Future Housing: No Difficulty Paying Gas/Electric Bills: No Difficulty Paying for Meds: No Currently Unemployed: No Education: Decline to Answer Difficulty w/ Childcare or Family Care: No Living arrangements: with family Additional living arrangements comments: spouse and children Occupation/Education: occupation 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 Gender identity (if verbalized by the patient): Female Sexual Orientation (if Verbalized by the Patient): Straight or Heterosexual Spiritual care concerns: No Meds Home Medications and Allergies Home Medications Medication Instructions Recorded Confirmed Type albuterol sulfate 90 mcg/actuation 1 inh inhalation QID PRN shortness 09/05/23 03/20/24 Rx aerosol inhaler of breath or wheezing #8.5 grams lubiprostone 8 mcg capsule 8 mcg PO BID #180 caps 02/15/24 03/20/24 Rx (Amitiza) budesonide-formoterol HFA 160 See Rx Instructions .Route 03/20/24 03/27/24 History mcg-4.5 mcg/actuation aerosol .COMPLEX PRN Shortness Of Breath inhaler Or Wheezing famotidine 20 mg tablet (Pepcid) 20 mg PO HS 03/20/24 03/27/24 History triamterene 37.5 1 tablet PO DAILY 03/20/24 03/27/24 History mg-hydrochlorothiazide 25 mg tablet vitamin B complex 1 tablet PO DAILY 03/20/24 03/27/24 History Allergies Allergy/AdvReac Type Severity Reaction Status Date / Time Penicillins Allergy Mild swelling Verified 03/27/24 07:06 and rash shellfish derived Allergy Mild swelling Verified 03/27/24 07:06 and rash Vital Signs Vital Signs - 24 hr 03/27/24 06:44 Temperature 36.6 C Pulse Rate 93 Respiratory Rate 20 Blood Pressure 148/90 H Pulse Oximetry 97 Oxygen Delivery Room Air
--- NOTE | 2024-03-27 08:52 | WPDHPUPDATE1 ---
History and Physical Update Update Date/Time: 03/27/24 08:52 History and Physical has been reviewed, including an updated exam of the patient. There are NO changes in the patient's condition. Risks, benefits, and alternatives have been discussed and questions answered. Patient agrees to proceed with procedure.
[2024-03-27] MEDS: ceFAZolin 2 GM/D5W 50 ML 2 GM/50 ML BAG IVPB (09:00)
--- NOTE | 2024-03-27 09:45 | W.PM.PROC2 ---
Procedure Note - Detailed Date of Procedure 03/27/24 Pre-op Diagnosis menorrhagia Post-op Diagnosis Same Procedure Performed Bilateral internal/external lighted ureteral stent placement Surgeon Patricia Lin MD Anesthesia General Description of Procedure Informed consent was obtained. A stay the operating. She was given preoperative IV antibiotics. She was induced anesthesia. She was placed in dorsal spine position. Twenty-two F cystoscope was inserted urethra bladder. The patient's bladder was without mucosal abnormalities. Patient had bilateral orthotopic orifices. We cannulated the left ureteral orifice wire passed easily over the wire in the lighted stent was placed up to 25cm. We then cannulated the right ureteral orifice a wire which passed easily, however the 6 F lighted stent not pass easily. We then used fluoroscopy to confirm appropriate placement of wire and were able to advance the stent under fluoroscopic guidance for 25cm. Plain film x-ray revealed positioning of stents in expected position. Dick catheter was inserted. Case was then turned over to Dr. Nelson with plan for stent removal at conclusion of operation Complications No immediate complications Condition Stable
--- NOTE | 2024-03-27 10:08 | SUR.OPER ---
TIME OUT for Dr. Nelson's portion of the procedure was 4954
--- NOTE | 2024-03-27 10:35 | SUR.OPER ---
LATE note on delay refers to Dr. Lin.
[2024-03-27] MEDS: fentaNYL CITRATE INJ (*CRX) 100 MCG/2 ML VIAL 25 MCG IV PUSH ×4 (11:30→11:41)
--- NOTE | 2024-03-27 11:31 | W.PM.PROC2 ---
Procedure Note - Detailed Date of Procedure 03/27/24 Pre-op Diagnosis menorrhagia Post-op Diagnosis Same Procedure Performed total laparoscopic hysterectomy , adhesiolysis - 30 minutes Surgeon Quinn Nelson MD Anesthesia General Findings adhesions between the uterus and the anterior pelvic wall, normal-appearing ovaries, absent fallopian tube Description of Procedure This patient was taken to the operating room. She was prepped and draped in the dorsal lithotomy position after induction of general anesthesia. The uterine manipulator and Renee cup were placed. This was done with a speculum and tenaculum. The speculum was placed. The cervix was grasped with a tenaculum. The stay sutures were placed at 3 and 9:00 a.m.. The stay sutures of 0 Vicryl were brought through the appropriately sized Renee cup. The tip of the WAQAR manipulator was placed in the intrauterine cavity. The cup was slid into place around the cervix and into the fornices. It was locked into place. The sutures were then wrapped around the handle and tied under tension. A 5 mm skin incision was made in the left upper quadrant the abdomen. A 5 mm trocar was inserted into the intrauterine cavity under direct visualization of the scope. Pneumoperitoneum was achieved. A left lower quadrant 11 mm incision was made with scalpel. An 11 mm trocar was inserted into the anterior abdominal cavity under direct visualization the scope. A 5 mm infraumbilical incision was made with a scalpel and a 5 mm trocar was inserted the intra-abdominal cavity under direct visualization of the scope. Bilateral ureteral lysis was performed. This was done from the pelvic brim down to the uterine artery. This was done with careful dissection using sharp and blunt dissection. In a stepwise fashion along the lateral aspects of the uterus the Suspensory ligament of the ovary, round ligament and broad ligaments were cauterized transected down to the level of the uterine arteries. A bladder flap was created in the bladder was moved distally to the end of the cervix and over the Renee cup. The bilateral uterine arteries were cauterized and transected. Colpotomy was then performed. In a circumferential fashion the vagina was transected using unipolar cautery. The incision was made down on the Renee cup. when the colpotomy was completed, the uterus and cervix were taken out through the vagina. A pneumo occluder was placed in the vagina. The vaginal cuff was closed with a 0 V lock suture in a running fashion. The pelvis was irrigated with copious amounts antibiotic irrigation. The ureters were again examined and found to be intact and flowing freely under the uterine arteries into the bladder. The bladder was intact. It was examined directly. Cystoscopy was performed after administration of methylene blue. The cystoscope was inserted. Bladder was distended with fluid. The ureteric meatus was observed bilaterally. Blue fluid was seen to egress bilaterally. The bladder was drained and the cystoscope was withdrawn. The vagina was irrigated with Betadine solution after removal of the Pneumo occluder. The patient was taken to recovery room. She was stable condition. Sponge lap and needle counts were correct x2. Estimated Blood Loss 100 Drains No Packing No Pathology Yes Complications No immediate complications Condition Stable Disposition PACU
[2024-03-27] MEDS: SIMETHICONE 80 MG TAB.CHEW PO ×2 (12:32→16:53)
[2024-03-27] MEDS: HYDROcodone/acetaminophen (*CRX) 10-325 MG TABLET 1 TAB PO ×3 (12:33→19:03)
[2024-03-27] MEDS: DEXTROSE 5%/0.45% SOD CHL 1,000 ML 125 ML IV CONT ×2 (12:34→21:37)
--- NOTE | 2024-03-27 12:57 | PC.NURSE ---
Patient arrived to unit at 1215. Pt's vitals taken, assessment completed, pain addressed. Pt instructed on how to order food. Family at bedside.
[2024-03-27] MEDS: KETOROLAC 30 MG/ML VIAL (*BKC) IV PUSH ×2 (15:38→21:28)
[2024-03-27] MEDS: LUBIPROSTONE 8 MCG CAPSULE PO (16:53)
[2024-03-27] MEDS: FAMOTIDINE 20 MG TABLET PO (21:53)
[2024-03-28] MEDS: HYDROcodone/acetaminophen (*CRX) 10-325 MG TABLET 1 TAB PO ×2 (00:06→04:34)
[2024-03-28 00:18] VITALS: BP 123/75; PULSE 81; RESP 18; TEMP 36.8; O2SAT 95
[2024-03-28] MEDS: KETOROLAC 30 MG/ML VIAL (*BKC) IV PUSH (04:34)
[2024-03-28 04:48] VITALS: BP 113/74; PULSE 94; RESP 18; TEMP 36.9; O2SAT 95
[2024-03-28 07:55] VITALS: BP 125/79; PULSE 83; RESP 18; TEMP 36.8; O2SAT 96
--- NOTE | 2024-03-28 08:19 | PM.GYNPNOP ---
FRONT END DEVELOPER DESIGNER - A/P Postoperative Procedures: Procedures Operation Date: 03/27/24 08:30 Actual Procedure Side Surgeon p Total Laparoscopic Hysterectomy Not Applicable Quinn Nelson MD s Cystoscopy, Bilateral Stent Placement for Abdominal Surgery Bilateral Patricia Lin MD Postoperative day: 1 Postoperative status: doing well and other (Tollerating Regular Diet) Postoperative plan: routine post-op care and discharge Time Spent With Patient Time: Total time spent is greater than 50% in coordination of care (as documented) at patient's floor/unit and/or counseling patient: Time with patient: 15 - 25 minutes FRONT END DEVELOPER DESIGNER- PN:Subj Post-Op Subjective Date/time seen: 03/28/24 08:19 Subjective: patient reports feeling better, pain is well controlled and patient is tolerating oral intake Exam Const: General: cooperative, healthy appearing, comfortable and no acute distress Resp: Auscultation: no crackles, no rales, no rhonchi and no wheezes Cardio: Rhythm: regular rhythm Heart sounds: no click and no murmurs GI: Inspection: non-distended Auscultation: normal bowel sounds Other: Incisions - CDI Extrem: General: normal to inspection, no pedal edema and no calf tenderness FRONT END DEVELOPER DESIGNER - PN: Obj Data Vital Signs Vital Signs: Vital Signs - 24 hr 03/27/24 11:15 03/27/24 11:30 03/27/24 11:45 Temperature 97.6 F Pulse Rate 94 82 75 Respiratory Rate 14 17 14 Blood Pressure 145/72 H 131/92 H 127/84 Pulse Oximetry 99 100 99 Oxygen Delivery Simple Face Mask Simple Face Mask Simple Face Mask Oxygen Flow Rate 8 8 8 03/27/24 12:00 03/27/24 15:45 03/27/24 12:15 Temperature 97.2 F L 96.9 F L Pulse Rate 70 82 77 Respiratory Rate 15 16 16 Blood Pressure 138/85 138/79 144/80 H Pulse Oximetry 94 99 Oxygen Delivery Room Air Oxygen Flow Rate 03/27/24 19:40 03/28/24 00:18 03/28/24 04:48 Temperature 98.4 F 98.3 F 98.5 F Pulse Rate 99 81 94 Respiratory Rate 20 18 18 Blood Pressure 136/87 123/75 113/74 Pulse Oximetry 95 95 95 Oxygen Delivery Oxygen Flow Rate Intake/Output Intake/Output: Intake & Output 03/25/24 03/26/24 03/27/24 08/22/24 23:59 23:59 23:59 23:59 Intake Total 1999 1224 Output Total 250 1025 Balance 1750 200 Meds/Results Medications: Active Medications Generic Name Dose Route Start Last Admin Trade Name Freq PRN Reason Stop Dose Admin Hydrocodone Bitart/Acetaminophen 1 tab 03/27/24 12:09 Hydrocodone/Acetaminophen (*Crx) 5-325 Mg Tablet PO Q3H PRN Pain Rated 5 or Less Hydrocodone Bitart/Acetaminophen 1 tab 03/27/24 12:09 03/28/24 04:34 Hydrocodone/Acetaminophen (*Crx) 10-325 Mg Tablet PO 1 tab Q3H PRN Administration Pain Rated 6 or Greater Albuterol 1 puff 03/27/24 12:09 Albuterol Sulfate (*Sp) Aerosol 1 Puff INHALATION QID PRN shortness of breath or wheezing Famotidine 20 mg 03/27/24 21:00 03/27/24 21:53 Famotidine 20 Mg Tablet PO 20 mg HS MARCELA Administration Ibuprofen 600 mg 03/27/24 12:09 Ibuprofen 600 Mg Tablet PO Q6H PRN Cramping Ketorolac Tromethamine 30 mg 03/27/24 12:09 03/28/24 04:34 Ketorolac 30 Mg/Ml Vial (*Bkc) IV PUSH 04/01/24 12:08 30 mg Q6H PRN Administration Pain Rated 4-6 Lubiprostone 8 mcg 03/27/24 17:00 03/27/24 16:53 Lubiprostone 8 Mcg Capsule PO 8 mcg BIDWM MARCELA Administration Naloxone HCl 0.1 mg 03/27/24 12:09 Naloxone Hcl 0.4 Mg/Ml Vial IV PUSH Q2M PRN Respiratory rate less than 10 Ondansetron HCl 4 mg 03/27/24 12:09 Ondansetron Inj 4 Mg/2 Ml Vial IV PUSH Q6H PRN Nausea And Vomiting Simethicone 80 mg 03/27/24 12:09 03/27/24 16:53 Simethicone 80 Mg Tab.Chew PO 80 mg TIDWM MARCELA Administration Triamterene/Hydrochlorothiazide 1 tab 03/28/24 09:00 Triamterene 37.5 Mg/Hctz 25 Mg (Maxzide) Tablet PO DAILY MARCELA Vitamin B Complex 1 cap 03/28/24 09:00 Vitamin B Complex Capsule PO DAILY
[2024-03-28] MEDS: LUBIPROSTONE 8 MCG CAPSULE PO (09:23)
[2024-03-28] MEDS: SIMETHICONE 80 MG TAB.CHEW PO ×2 (09:23→11:39)
[2024-03-28] MEDS: HYDROcodone/acetaminophen (*CRX) 5-325 MG TABLET 1 TAB PO ×2 (09:23→11:39)
[2024-03-28] MEDS: TRIAMTERENE 37.5 MG/HCTZ 25 MG (MAXZIDE) TABLET 1 TAB PO (09:24)
[2024-03-28] MEDS: VITAMIN B COMPLEX CAPSULE 1 CAP PO (09:24)
--- NOTE | 2024-03-28 09:29 | WPDANESPN ---
Anes - Prog Note Post-Op Date/Time: 03/28/24 09:29 Cardiovascular status: normal Respiratory status: normal Airway patency: baseline Mental status: baseline Post-Op hydration status: normal Vital Signs: Last Vital Signs Temp 36.8 C 03/28/24 07:55 Pulse 83 03/28/24 07:55 Resp 18 03/28/24 07:55 BP 125/79 03/28/24 07:55 Pulse Ox 96 03/28/24 07:55 O2 Del Method Room Air 03/27/24 12:00 O2 Flow Rate 8 03/27/24 11:45 Pain Score (VAS): 3/10 I/O: Intake & Output 03/27/24 03/28/24 03/28/24 23:59 07:59 15:59 Intake Total 1850 1225 Output Total 200 1025 Balance 1650 200 Post-procedural complaints: none Patient Feedback: Patient satisfied with anesthetic care.
[2024-03-28] MEDS: IBUPROFEN 600 MG TABLET PO (11:38)
== END 2024-03-28 13:00 | disposition home health service (06) ==
LOC: ANHSURGERY 06:26 → ANHOB2 12:13
PROVIDERS: Urology; PCP Family Medicine; Visit Provider Obstetrics & Gynecology
PROC: 0UT9FZZ Resection of Uterus, Via Natural or Artificial Opening With Percutaneous Endoscopic Assistance (ICD-10-PCS; CPT 58570; principal; 2024-03-27 08:30)
PROC: (CPT 52005; 2024-03-27 08:30)
DX: D25.1 Intramural leiomyoma of uterus (principal); D25.2 Subserosal leiomyoma of uterus; N87.9 Dysplasia of cervix uteri, unspecified; N73.6 Female pelvic peritoneal adhesions (postinfective); I10 Essential (primary) hypertension; J45.909 Unspecified asthma, uncomplicated; D64.9 Anemia, unspecified; E28.2 Polycystic ovarian syndrome; F32.1 Major depressive disorder, single episode, moderate; G89.18 Other acute postprocedural pain; F12.90 Cannabis use, unspecified, uncomplicated; E66.9 Obesity, unspecified; Z68.36 Body mass index [BMI] 36.0-36.9, adult; Z79.51 Long term (current) use of inhaled steroids; Z98.890 Other specified postprocedural states; Z98.51 Tubal ligation status; Z80.8 Family history of malignant neoplasm of other organs or systems
CPT/HCPCS: 58570; 52005; 88307; 99199; A9270; C1758; C1769; J0690; J1100; J1170; J1596; J1885; J2250; J2405; J2704; J2710; J3010; J7030; J7120; Q9968

== ENCOUNTER 2025-08-01 13:33 | Outpatient (CLI) | payer OTHER, SELFPAY ==
--- OUTSIDE RECORDS SUMMARY | 2025-08-01 13:35 | XMS_ITS | Clinical Summary ---
Author Organization [facility] Address [facility] [place] [address] Care Team Providers Care Election Supervisor Name Role Phone Unavailable Primary Care Provider Unavailabl e Social History Tobacco Use Types Packs/Day Years Used Date Smoking Tobacco: Never Assessed Comments Unknown Sex and Gender Information Value Date Recorded Sex Assigned at Not on file Legal Sex Female 5:48 PM CDT Gender Identity Not on file Sexual Orientation Not on file Plan of Treatment Health Maintenance Due Date Last Done Comments Cervical Cancer Screening Pa p Smear (Age 30 to 64) Every 3 Years 1986 Annual Physical 1989 Hepatitis C 01/27/2004 DTaP, Tdap and Td Vaccines ( 1 - Tdap) 2005 Hepatitis B Vaccines (1 of 3 - 19+ 3-dose series) 2005 HPV Vaccines (1 - 3-dose SCD M series) 2013 Cervical Cancer Screening Pa p with HPV Testing (Age 30 to 64) Every 5 Years 01/27/2016 Cervical Cancer Screening with HPV 01/27/2016 COVID-19 Vaccine (2024-2 6 season) 2025 Influenza Adult (#1) 2025 Hepatitis A Vaccines Aged Out No long er eligible based on patient's age to complete this topic Meningococcal B Vaccine Aged Out No l onger eligible based on patient's age to complete this topic Meningococcal Vaccine Aged Out No gail greg eligible based on patient's age to complete this topic Pneumococcal Vaccine: Pediat rics (0 to 5 Years) and At-Risk Patients (6 to 49 Years) Aged Out No longer eligible b ased on patient's age to complete this topic RSV Immunizations Under 20 Months Aged Out No longer eligible based on patient's age to complete this topic
--- OUTSIDE RECORDS SUMMARY | 2025-08-01 13:35 | XMS_ITS | Clinical Summary ---
Author Organization [facility] Address [address] [place] [address] Care Team Providers Care Utility Lineman Name Role Phone Lianet Burr MD Unavailable [phone] Source Comments [facility],non-owned Affiliates and Associated Physician Practices is amultiple site organization consisting of ambulatory clinics and hospital sitesin [place], [place], [place] and [place]. This disclosure is being madepursuant to the Care Everywhere program and may not contain all information available regarding this patient. Last updated 18.[facility] [employer] Allergies Active Allergy Reactions Criticality Noted Date Comments Penicillins Anaphylaxis,Swelling High 05/22/2013 Shellfish Swelling 06/26/2013 Medications * Be aware that medications may not be up to date on this document. Alwaysverify current medications with the patient. MV-Min-Fe Fum-FA-DHA ( MULTIVITAMIN PLUS DHA) 27-0.8-250 MG CAPS TK 1 C PO D 13 7 Active Misc. Devices (BREAST PUMP) MISC For breast engorgement 1 Each 7 Active Active Problems Problem Noted Date Diagnosed Date Obesity (BMI 30-39.9) 04/04/2017 Overview (04/04/2017): 04/04/2017: BMI=35 Resolved Problems Problem Noted Date Diagnosed Date Resolved Date Supervision of other normal , antepartum 08/03/2016 04/04/2017 Overview (01/23/2017): 01/23/2017: GBS neg 01/04/2017: EFW= 5#, 32%ile, FL <3% 11/30/2016: LXI=3258b, 3#, 47%ile 11/16/2016: Tdap today 11/03/2016: Nl CBC & GCT. 10/05/2016: Normal male ultrasound, anterior placenta O+/I/-/-/-/-, LINDA=02/11/17 by 7.4 u/s on 06/29/16, NOT consistent with LMP. Previous delivery, antepartum 08/03/2016 04/04/2017 Overview (11/03/2016): Repeat scheduled 02/06/17 at 7:30 at [facility]. Anterior placenta. Excessive growth affec ting management of mother, antepartum 04/01/2015 06/17/2015 Encounter for supervision of other normal 10/08/2014 06/17/2015 Overview (06/14/2015): 04/03/2015: GBS neg 01/28/2015: Normal CBC & GCT Normal female ultrasound. Normal quad screen 12/03/2014: normal female ultrasound. History of delivery , currently 10/08/2014 06/17/2015 Overview (10/08/2014): Less than 1 year between pregnancies. Will schedule elective repeat on 04/16/15. uterine contractions, antepartum 02/13/2014 05/13/2014 Screening for condition 10/20/2013 03/11/2014 Overview (05/07/2015): 1st look on 10/09/13 Result: 1:10,000 for DS and 1:10,000 for Trisomy 18 2nd blood draw ideal dates: 10/30-11/13 Letter sent 10/21/13 Final result: 1:10,000 DS, 1:10,000 T18, 1:990 ONTD Encounter for supervision of other normal 10/09/2013 05/13/2014 Overview (06/14/2015): 03/21/2014: GBS negative 02/05/2014: TDaP today. 01/10/2014: Normal CBC & GCT Normal female ultrasound at 19 weeks. Normal sequential screen. Flu shot 09/18/13. Normal Hgb electrophoresis in the past. First trimester genetic screening done at [facility]. O+/I/-/-/-, E coli UTI. Menorrhagia 09/16/2011 07/03/2016 Overview (06/28/2013): Multiple endometrial polyps, benign. Started 05/25/13. Has been continuous bleeding. Thickened EMC 1.9cm. Had hysteroscopy, dilation and curettage. Endometrial polyp removed. Irregular menses 09/16/2011 04/04/2017 PCOS (polycystic ovarian syndrome) 09/07/2011 04/04/2017 Overview (09/21/2011): elevated testosterone Immunizations Immunization Administration Dates Next Due FLU VACCINE TRI IIV3 SPLIT PF IM (FLUVIRIN) 09/07 Human Papilloma Virus Quadrivalent Vaccine 09/16 INFLUENZA VACCINE, QUADR. (F LUZONE; FLULAVAL; FLUARIX; AFLURIA QUADRIVALENT; 6MO+), 0.5 ML (IIV4) 06/29/2016,04/09/2014 TDAP (7yrs+) 11/16/2016,01/30/2015,02/05/2014 Family History Medical History Relation Name Comments Cancer Maternal Grandmother stomach Diabetes Maternal Grandmother Hypertension Mother Multiple Sclerosis Mother Twins Mother Defects Neg Hx Osteoporosis Neg Hx Relation Name Status Comments Brother Alive Father Alive Maternal Grandmother Mother Alive Sister 1 Alive Sister 2 Alive Social History Tobacco Use Types Packs/Day Years Used Date Smoking Tobacco: Never Smokeless Tobacco: Never Tobacco Cessation:Counseling Given: Yes Alcohol Use Standard Drinks/Week Comments No 0 (1 standard drink = 0.6 oz pur e alcohol) Comments No Sex and Gender Information Value Date Recorded Sex Assigned at Not on file Legal Sex Female 5:33 AM ROPE CLEANER Gender Identity Not on file Sexual Orientation Not on file Occupation Industry Job Start Date Job End Date [employer] Not on file Not on file Not on file Last Filed Vital Signs Vital Sign Reading Time Taken Comments Blood Pressure 120/78 06/14/2017 1:24 PM ROPE CLEANER Pulse 92 02/09/2017 11:53 AM CDT Temperature 37 C (98.6 F) 02/09/2017 11:53 AM CDT Respiratory Rate 16 02/09/2017 11:53 AM CDT Oxygen Saturation 99% 02/09/2017 11:53 AM CDT Inhaled Oxygen Concentration - - Weight 90.7 kg (200 lb) 06/14/2017 1:24 PM ROPE CLEANER Height 157.5 cm (5' 2) 06/14/2017 1:24 PM ROPE CLEANER Body Mass Index 36.58 06/14/2017 1:24 PM ROPE CLEANER Plan of Treatment Health Maintenance Due Date Last Done Comments HEPATITIS C SCREENING 01/22/2004 HEPATITIS B VACCINE (1 of 3 - 19+ 3-dose series) 2005 HPV VACCINE (2 - 3-dose series) 10/14/2011 09/16/2011 PAP with HPV 06/29/2021 06/29/2016 DEPRESSION SCREENING 08/07/2024 COVID-19 VACCINE ( - season) 2025 INFLUENZA VACCINE (#1) 2025 6, 04/09/2014, 09/18/2013 DTAP/TDAP/TD VACCINES (4 - Td or Tdap) 11/16/2026 11/16/2016, 01/30/2015, 02/05/2014 ZOSTER VACCINE (1 of 2) 01/27/2036 HIV SCREENING Completed 08/23/2016, 11/2014, 10/16/2013, Additional history exists HIB VACCINE Aged Out No longer eligi ble based on patient's age to complete this topic MENINGOCOCCAL (Group B) VACCINE SHARED DECISION-MAKING Aged Out No longer eligible based on patient's age to complete this topic MENINGOCOCCAL GROUPS A/C/Y/W VACCINE Aged Out No longer eligible based on patient's age to complete this topic PNEUMOCOCCAL VACCINE Aged Out No long er eligible based on patient's age to complete this topic Procedures Procedure Name Priority Date/Time Associated Diagnosis Comments OBSTETRIC PANEL Routine 08/23/2016 3:04 PM ROPE CLEANER Encounter for supervision of other normal in first trimester PAP IG LB+HPV HR RFLX 16,18 Routine 06/29/2016 11:14 AM ROPE CLEANER Well woman exam from Last 3 Months or Most Recently Relevant to Health Maintenance Results * OBSTETRIC PANEL (08/23/2016 3:04 PM ROPE CLEANER) Hepatitis B Virus Surface Antigen Negative Negative [facility] INSURANCE BILL Rubella Antibody 3.23 Immune >0.99 index [facility] INSURANCE BILL Comment: Non-immune <0.90 Equivocal 0.90 - 0.99 Immune >0.99 ABO O [facility] INSURANCE BILL Rh Type Positive [facility] INSURANCE BILL Comment: Please note: Prior records for this patient's ABO / Rh type are not available for additional verification. Antibody Screen Negative Negative [facility] INSURANCE BILL RPR Non Reactive Non Reactive [facility] INSURANCE BILL HIV Screen 4th Generation w Reflex Non Reactive Non Reactive [facility] INSURANCE BILL WBC 6.4 3.4 - 10.8 x10E3/uL [facility] INSURANCE BILL RBC 4.26 3.77 - 5.28 x10E6/uL [facility] INSURANCE BILL Hemoglobin 12.4 11.1 - 15.9 g/dL [facility] INSURANCE BILL Hematocrit 37.2 34.0 - 46.6 % [facility] INSURANCE BILL MCV 87 79 - 97 fL [facility] INSURANCE BILL MCH 29.1 26.6 - 33.0 pg [facility] INSURANCE BILL MCHC 33.3 31.5 - 35.7 g/dL [facility] INSURANCE BILL RDW 14.3 12.3 - 15.4 % [facility] INSURANCE BILL Platelet Count 223 150 - 379 x10E3/uL [facility] INSURANCE BILL Granulocytes % 71 % [facility] INSURANCE BILL Lymphocytes % 17 % [facility]URANCE [facility] Monocytes % 10 % [facility] INSURANCE BILL Eosinophils % 2 % [facility]URANCE BILL Basophils % 0 % [facility] INSURANCE BILL Immature Cells NOT NEEDED [facility] INSURANCE BILL Comment:Ancillary determined the test is not needed Granulocytes Absolute 4.6 1.4 - 7.0 x10E3/uL [facility] INSURANCE BILL Lymphocytes Absolute 1.1 0.7 - 3.1 x10E3/uL [facility] INSURANCE BILL Monocytes Absolute 0.6 0.1 - 0.9 x10E3/uL [facility] INSURANCE BILL Eosinophils Absolute 0.1 0.0 - 0.4 x10E3/uL [facility] INSURANCE BILL Basophils Absolute 0.0 0.0 - 0.2 x10E3/uL [facility] INSURANCE BILL Immature Granulocytes 0 % [facility] INSURANCE BILL Immature Granulocytes Absolute 0.0 0.0 - 0.1 x10E3/uL [facility] INSURANCE BILL nRBC NOT NEEDED [facility] INSURANCE BILL Comment:Ancillary determined the test is not needed Comment Hematology NOT NEEDED [facility] INSURANCE BILL Comment:Ancillary determined the test is not needed Blood BLOOD SPECIMEN / Unknown 08/23/2016 3:04 PM ROPE CLEANER 08/23/2016 Narrative Resulting Agency Comment [facility] [address] [phone] [place] Lianet Burr MD LAB - CHEMISTRY ORDERABLES F inal Result [facility] INSURANCE BILL [address] [place] [address] * PAP SMEAR IG HPV HR RFLX 16/18 (PO REF LAB) (06/29/2016 11:14 AM ROPE CLEANER) Diagnosis [facility] INSURANCE BILL Comment:NEGATIVE FOR INTRAEP ITHELIAL LESION AND MALIGNANCY. Specimen Adequacy [facility] INSURANCE BILL Comment: Satisfactory for evaluation. Endocervical and/or squamous metaplastic cells (endocervical component) are present. Clinician Provided ICD10 [facility] INSURANCE BILL Comment: Z01.419 Z32.01 Z23 Performed by [facility] INSURANCE BILL Comment:Mateo Mccarthy totechnologist (ASCP) Comment . [facility] INSURANCE BILL Note [facility] INSURANCE BILL Comment: The Pap smear is a screening test designed to aid in the detection of premalignant and malignant conditions of the uterine cervix. It is not a diagnostic procedure and should not be used as the sole means of detecting cervical cancer. Both false-positive and false-negative reports do occur. . IGLBP CPT Code Automation [facility] INSURANCE BILL Comment: This liquid based ThinPrep(R) pap test was screened with the use of an image guided system. Human papillomavirus High Risk Negative Negative [facility] INSURANCE BILL Comment: This high-risk HPV test detects thirteen high-risk types (16/18/31/33/35/39/45/51/52/56/58/59/68) without differentiation. . Pathology/Cytolog y ENTIRE ENDOCERVIX / Unknown 06/29/2016 11:14 AM ROPE CLEANER 06/29/2016 Narrative [facility] INSURANCE BILL - 07/04/2016 1:07 PM ROPE CLEANER Source.............Cervix;Endocervix Other.............. No. of containers..01 CYTYC Thin Prep Vial Resulting Agency Comment [facility] [address] [place] [phone] Lianet Burr MD LAB - PATHOLOGY/CYTOLOGY ORD ERABLES Final Result [facility] INSURANCE BILL [address] [place] [address] from Last 3 Months or Most Recently Relevant to Health Maintenance Insurance SELF PAY NO INSURANCE Member Subscriber Plan / Payer (Ef fective for All Dates) Name:Malcom Morris Member ID:Not on file Relation to Subscriber:Not on file Name:MALCOM MORRIS Subscriber ID:Not on file (Home) Address: [address] [address] Payer ID:Not on file Group ID:Not on file Type:Self Pay Address: [facility] Advance Directives * Full Code (Latest Code Status on File) Date Activated Date Inactivated Comments 02/06/2017 6:31 AM 02/09/2017 2:25 PM * Full Code Date Activated Date Inactivated Comments 04/16/2015 12:04 PM 04/19/2015 1:20 PM * Full Code Date Activated Date Inactivated Comments 04/17/2014 4:40 PM 04/20/2014 1:32 PM * Full Code Date Activated Date Inactivated Comments 04/16/2014 8:19 PM 04/17/2014 4:40 PM * FULL RESUSCITATION Date Activated Date Inactivated Comments 06/26/2013 5:29 AM 06/26/2013 11:25 AM Care Teams Utility Lineman Relationship Specialty Start Date End Date Lianet Burr MD 3D Designer Obstetrics and Gynecology 09/16/11
--- OUTSIDE RECORDS SUMMARY | 2025-08-01 13:35 | XMS_ITS | Data Portability ---
Author Organization [facility] Address [address] [place] [address] Care Team Providers Care Sectionizer Name Role Phone YANETH MONTANA Primary Care Provider Assessment Encounter Date Assessment Date Assessment LastModified by Organization Details LastModified Time 03/19/2024 03/19/2024 Patient is ___weeks . Discussed plan. Not available 03/19/2024 12:32:59 05/30/2024 05/30/2024 Annual gynecological exam performed. Patient will come back in a year unless there are new symptoms. Not available 05/30/2024 12:35:37 Plan of Treatment Reminders Order Date Submit Date Provider Last Modified By Organization Details Last Modified Time Details Appointments None recorded. Lab None recorded. Referral None recorded. Procedures None recorded. Surgeries total hysterectom y, laparoscopi c, with bilateral salpingecto my (SURG) 2023 024 [facility] Surgery [facility], [address], [place], [address], 10:53:16 Imaging None recorded. Medication Orders hydrocodone 5 mg-acetamin ophen 325 mg tablet 2023 024 [id number], [address] [facility], [place], [place], [id number], 12:37:13 Patient TargetsNo targets recorded. Patient InstructionsNo instructions recorded. Reason for Referral None Reported. Results Created Date Observation Date Name Description Value Unit Range Abnormal Flag Note LastModifiedBy Organization Detail LastModifiedTime 01/11/20 24 01/11/2024 US, pelvi s No observ ation record ed. [email or web address] [facility] [address], [place], [address], 01/11/2024 18:33:11 01/11/20 24 01/11/2024 US, trans vagin al No observ ation record ed. [email or web address] [facility] [address], [place], [address], 01/11/2024 18:33:03 01/11/20 24 01/11/2024 US, pelvi s No observ ation record ed. [address], [place], [address], 01/11/2024 21:49:01 03/27/20 24 03/27/2024 XR, abdom en No observ ation record ed. [place] [address], [place], [address], 03/27/2024 21:38:02 Result Notes None recorded. Procedures Surgical History Date Name Laterality Status Provider Name and Address Organization Details Recorded Time 03/27/20 24 TOTAL HYSTERECTOMY, LAPAROSCOPIC, WITH BILATERAL SALPINGECTOMY (SURG) completed [facility] 03/27/2024 10:56:45 03/27/20 24 TOTAL HYSTERECTOMY, LAPAROSCOPIC, WITH BILATERAL SALPINGECTOMY (SURG) completed [facility] 03/27/2024 12:40:52 05/26/20 23 Date of Last Pap Smear completed Carlita Cole [facility] 01/25/2024 11:37:38 06/10/20 22 Endometrial Ablation with Hysteroscopy completed Quinn Nelson MD [address], [place], [address], [facility] 06/10/2022 14:16:30 06/10/20 22 Endometrial Ablation completed Odette Santizose [facility] 05/26/2023 10:38:34 05/12/20 22 Endometrial Biopsy completed JANICE Ghosh [address], [place], [address], [facility] 05/12/2022 12:17:43 05/25/20 17 Tubal Ligation completed [facility] 01/04/2024 11:15:50 02/07/20 17 Caesarean Section completed [facility] 01/04/2024 11:15:50 08/07/[address] [facility] 05/25/2023 15:47:58 04/16/[address] [facility] 05/25/2023 15:46:41 04/16/20 15 Caesarean Section completed [facility] 01/04/2024 11:15:50 04/17/20 14 Caesarean Section completed [facility] 01/04/2024 11:15:50 03/07/[address] [facility] 05/25/2023 15:46:08 Imaging Results None recorded. Procedure Notes None recorded. Medical Equipment None Reported. Allergies Allergen ID Allergen Name Allergen Category Reaction Reaction Severity Criticality Documentation Date Start Date Code Code System Note Provider Name and Address Organization Details Recorded Time Product containin g penicilli n (product) medicatio n Not available Not available Not available 04/14/2022 [id number] SNOMED Noni ferris [facility] 14:17:28 Medications Name Sig Start Date Stop Date Status Note LastModified by Organization Details LastModified Time buspirone 5 mg tablet TAKE 1 TABLET BY MOUTH TWICE DAILY 01/02 completed Not Available Not Available Not Available nystatin 100,000 unit/mL oral suspension SWISH AND SPIT 5 ML BY MOUTH THREE TIMES DAILY FOR 3 WEEKS 01/02 completed Not Available Not Available Not Available prednisone 10 mg tablet 01/02 completed Not Available Not Available Not Available clindamycin HCl 300 mg capsule 01/02 completed Not Available Not Available Not Available trazodone 50 mg tablet TAKE 1 TABLET BY MOUTH EVERY DAY AT BEDTIME 09/27 completed Not Available Not Available Not Available azithromyci n 250 mg tablet TAKE 2 TABLETS BY MOUTH FOR 1 DAY THEN TAKE 1 TABLET BY MOUTH DAILY FOR 4 DAYS 01/02 completed Not Available Not Available Not Available ibuprofen 800 mg tablet TAKE ONE TABLET BY MOUTH TWO HOURS PRIOR TO PROCEDURE 01/02 completed Not Available Not Available Not Available fluconazole 150 mg tablet TAKE 1 TABLET BY MOUTH WEEKLY 04/14 completed Not Available Not Available Not Available valacyclovi r 1 gram tablet TAKE 1 TABLET BY MOUTH EVERY 8 HOURS 01/03 completed Not Available Not Available Not Available clarithromy etelvina 500 mg tablet TAKE 1 TABLET BY MOUTH EVERY 12 HOURS FOR 10 DAYS 04/14 completed Not Available Not Available Not Available hydrocodone 5 mg-acetamin ophen 325 mg tablet TAKE 1 TABLET BY MOUTH EVERY 6 HOURS 05/30 completed Not Available Not Available Not Available ondansetron HCl 8 mg tablet TAKE ONE TABLET BY MOUTH TWO HOURS PRIOR TO PROCEDURE 01/02 completed Not Available Not Available Not Available prednisone 20 mg tablet 01/02 completed Not Available Not Available Not Available amlodipine 5 mg tablet TAKE 1 TABLET BY MOUTH EVERY NIGHT AT BEDTIME 04/14 completed Not Available Not Available Not Available bacitracin zinc 500 unit/gram topical ointment APPLY TOPICALLY TO NOSE TWICE DAILY 01/02 completed Not Available Not Available Not Available sulfamethox azole 800 mg-trimetho prim 160 mg tablet TAKE 1 TABLET BY MOUTH EVERY 12 HOURS FOR 7 DAYS active Not Available Not Available No t Available hydrocodone 10 mg-acetamin ophen 325 mg tablet TAKE ONE TABLET BY MOUTH TWO HOURS PRIOR TO PROCEDURE 01/02 completed Not Available Not Available Not Available oxycodone-a cetaminophe n 5 mg-325 mg tablet TAKE 1 TABLET BY MOUTH EVERY 4 HOURS NEEDED FOR PAIN 05/30 completed Not Available Not Available Not Available alprazolam 0.5 mg tablet TAKE 1 TABLET BY MOUTH 2 HOURS BEFORE PROCEDURE 01/02 completed Not Available Not Available Not Available amlodipine 10 mg tablet TAKE 1 TABLET BY MOUTH DAILY 01/02 completed Not Available Not Available Not Available benzonatate 100 mg capsule TAKE 2 CAPSULES BY MOUTH THREE TIMES DAILY NEEDED FOR COUGH 01/02 completed Not Available Not Available Not Available diclofenac potassium 50 mg tablet TAKE 1 TABLET BY MOUTH THREE TIMES DAILY NEEDED FOR PAIN 01/02 completed Not Available Not Available Not Available triamterene 37.5 mg-hydrochl orothiazide 25 mg tablet TAKE 1 TABLET BY MOUTH DAILY active Not Available Not Available No t Available montelukast 10 mg tablet TAKE 1 TABLET BY MOUTH EVERY DAY AT BEDTIME 01/03 completed Not Available Not Available Not Available azelastine 137 mcg (0.1 %) nasal spray USE 1 SPRAY IN EACH NOSTRIL EVERY 12 HOURS 01/02 completed Not Available Not Available Not Available methylpredn isolone 4 mg tablets in a dose pack FOLLOW PACKAGE DIRECTION S 04/14 completed Not Available Not Available Not Available albuterol sulfate HFA 90 mcg/actuati on aerosol inhaler INHALE 1 PUFF BY MOUTH FOUR TIMES DAILY NEEDED FOR SHORTNESS OF BREATH OR WHEEZING active Not Available Not Available No t Available ondansetron 4 mg disintegrat ing tablet DISSOLVE 1 TABLET ON THE TONGUE EVERY 6 HOURS NEEDED FOR NAUSEA OR VOMITING 01/02 completed Not Available Not Available Not Available fluticasone propionate 50 mcg/actuati on nasal spray,suspe nsion SHAKE LIQUID AND USE 1 SPRAY IN EACH NOSTRIL DAILY 01/02 completed Not Available Not Available Not Available azithromyci n 500 mg tablet TAKE 1 TABLET BY MOUTH DAILY FOR 4 DAYS 01/02 completed Not Available Not Available Not Available metoprolol tartrate 25 mg tablet TAKE 1 TABLET BY MOUTH TWICE DAILY 01/03 completed Not Available Not Available Not Available iron active Not Available Not Availa ble Not Available budesonide- formoterol HFA 160 mcg-4.5 mcg/actuati on aerosol inhaler INHALE 2 PUFFS BY MOUTH EVERY 12 HOURS 09/27 completed Not Available Not Available Not Available FeroSul 325 mg (65 mg iron) tablet TAKE 1 TABLET BY MOUTH EVERY DAY 01/02 completed Not Available Not Available Not Available lubiproston e 8 mcg capsule TAKE 1 CAPSULE BY MOUTH TWICE DAILY 09/27 completed Not Available Not Available Not Available Wegovy 0.25 mg/0.5 mL subcutaneou s pen injector active Not Available Not Available Not Available Wegovy 0.5 mg/0.5 mL subcutaneou s pen injector ADMINISTE R 0.5 MG UNDER THE SKIN WEEKLY active Not Available Not Available No t Available Ozempic 0.25 mg or 0.5 mg (2 mg/3 mL) subcutaneou s pen injector Inject by subcutane ous route. 03/19 completed Not Available Not Available Not Available Vitals Date Recorded Body height Body mass index (BMI) Body weight Systolic And Diastolic Provider Name and Address Organization Details Last Updated DateTime 09/27/2024 157.48 cm 37.7 kg/m2 65358.03 g 139/87 mm[Hg] [facility] 09/27/2024 10:46:38 Date Recorded Body height Body mass index (BMI) Body weight Systolic And Diastolic Provider Name and Address Organization Details Last Updated DateTime 01/25/2024 157.48 cm 39.1 kg/m2 69755.77 g 141/88 mm[Hg] [facility] 01/25/2024 11:36:08 Date Recorded Body height Body mass index (BMI) Body weight Systolic And Diastolic Provider Name and Address Organization Details Last Updated DateTime 03/19/2024 157.48 cm 37.7 kg/m2 33183.03 g 141/92 mm[Hg] [facility] 03/19/2024 12:34:01 Date Recorded Body height Body mass index (BMI) Body weight Systolic And Diastolic Provider Name and Address Organization Details Last Updated DateTime 04/01/2024 157.48 cm 38 kg/m2 37630.21 g 147/88 mm[Hg] [facility] 04/01/2024 11:38:53 Date Recorded Body height Body mass index (BMI) Body weight Systolic And Diastolic Provider Name and Address Organization Details Last Updated DateTime 05/30/2024 157.48 cm 38 kg/m2 20096.21 g 139/90 mm[Hg] Carlita Cole [facility] 05/30/2024 12:36:43 Social History Question Answer Notes LastModified by Organizat ion Details LastModified Time Tobacco Smoking Status Never Smoker Alhaji Ceja barrington, [facility] 06/17/2022 10:46:09 Do You Have An Advance Directive? No Information n ot available 04/27/2022 Are You Blind Or Do You Have Difficulty Seeing? No Information n ot available 04/14/2022 What Is Your Level Of Caffeine Consumption? None Information not available 05/12/2022 How Much Tobacco Do You Chew? None Information not available 04/27/2022 In The 14 Days Before Symptom Onset, Have You Had Close Contact With A Laboratory-confirm ed COVID-19 While That Case Was Ill? No Information n ot available 04/27/2022 In The 14 Days Before Symptom Onset, Have You Had Close Contact With A Person Who Is Under Investigation For COVID-19 While That Person Was Ill? No Information not available 04/27/2022 Have You Been To An Area Known To Be High Risk For COVID-19? No Information not available 04/27/2022 Are You Deaf Or Do You Have Serious Difficulty Hearing? No Information not available 04/14/2022 What Type Of Diet Are You Following? REGULAR Information n ot available 04/14/2022 What Is The Highest Grade Or Level Of School You Have Completed Or The Highest Degree You Have Received? [id number] Information not available 05/20/2022 Are There Any Guns Present In Your Home? No Information not available 04/27/2022 Do You Use Protection During Sex? No Information not available 01/04/2024 Do You Use Your Seat Belt Or Car Seat Routinely? Yes Information not available 04/27/2022 Do You Have Smoke And Carbon Monoxide Detectors In Your Home? Yes Information not available 04/27/2022 How Much Tobacco Do You Smoke? No Information not available 04/27/2022 Do You Use Sunscreen Routinely? No Information not available 04/27/2022 Have You Used IV Drugs? No Information not available 04/27/2022 Do You Have Difficulty Walking Or Climbing Stairs? No [email or web address] Information not available 06/17/2022 Sex: Unknown Functional Status Question Answer Note LastModified by Organizat ion Details LastModified Time Do you use any illicit or recreational drugs? No Information not available 04/27/2022 What is your level of alcohol consumption? None Information not available 05/20/2022 Are you able to walk independently without assistance or assistive devices? YESWOREST Information not available 04/14/2022 Are you able to care for yourself independently? 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 No Information not available 06/17/2022 What is your exercise level? Occasional Information not available 04/14/2022 Mental Status Question Answer Note LastModified by Organization D etails LastModified Time Do you feel stressed (tense, restless, nervous, or anxious, or unable to sleep at night)? [id number] Information not available 01/04/2024 Family History Relationship Description Onset Age of this Age Resolved Age Notes LastModified by Organization Details LastModified Time Father Asthma [email or web address] Not availabl e 04/14/2022 14:23:30 Father Essential hypertension [email or web address] Not available 12:17:02 Paternal Aunt Asthma [email or web address] Not a vailable 04/14/2022 14:23:40 Paternal Aunt Essential hypertension Not available 12:17:02 Mother Essential hypertension [email or web address] Not available 12:17:02 Maternal Grandmother Malignant neoplasm of breast 50 64 [email or web address] Not available 2023 12:41:07 Paternal Grandmother Malignant neoplasm of breast 45 52 [email or web address] Not available 2023 12:41:07 Medical History Condition Response Allergies (Food, seasonal, environmental ) N Other N Breast Cancer N Drug/Latex Allergies/Reactions N Blood Transfusion N Dermatologic Disorders N Lung Disease N Defects or Inherited Disease N Breast Problem N Gestational Diabetes N Hematologic disorders N Anesthesia Complications N History of STI N Deep Vein Thrombosis N Polycystic ovary syndrome Y Anxiety Disorder N Autoimmune disease N Arthritis N Infertility N Polyps N Acid Reflux (GERD) N History of abnormal pap N Cancer N Stroke N Varicosities N Neurologic/Epilepsy N Endometriosis N High Cholesterol N Headaches N Fibromyalgia N Kidney Disease N Heart Problems N Kidney or Bladder Problems N Thyroid Problems N GI Problems N Eating Disorder N Anemia Y Art (IVF or FET) N Psychiatric Illness N Ovarian Cancer N Diabetes N Pulmonary (TB, Asthma) N Hepatitis/Liver Disease N No Past Medical History N Eczema N Urinary Tract Infection N Abuse/Domestic Violence N Asthma Y Trauma/Violence N Depression/ depression N Heart Disease N Pre-Eclampsia N Hypertension Y Osteoporosis N Thrombophilias N Gynecological History Statement/Question Response Date of Last Mammogram Flow Heavy Date of LMP 03/15/2024 N Was last menstrual period normal N STIs/STDs N Date of Last Colonoscopy Desired Control Method Hysterectom y Abnormal Pap N On BCP's at Conception? N HPV Vaccine N Colposcopy Duration of Flow (days) 10 Current Control Method Hysterectom y Age at First Child 29 Are cycles usually normal N Frequency of Cycle (Q days) 22 Sexually Active? Y Menses Monthly N Date of DEXA bone scan Age of first menstrual cycle 13 Date of Last Pap Smear 05/26/2023 Sexual Problems? N LMP Definite N Obstetrics History GPAL:G 4 P 0 0 1 3 Type Value Induced 1 Living 3 Total 4 Past Encounters Encounter ID Performer Location Encounter Start Date Encounter Closed Date Diagnosis/Indication Diagnosis SNOMED-CT Code Diagnosis ICD10 Code Diagnosis IMO Codes Diagnosis Note [id number] JANICE Ghosh [facility] [address] [address] 04/14/2022 13:59:52 04/14/2022 15:33:01 Abnormal uterine bleeding [id number] 9100 N93.9 We discussed the various causes of AUB and workup neededWe agreed to labs and pelvic u/s for further evaluation STI endocervic al testing sentNeed to obtain record from recent pap smearWe discussed the various options to help with AUB pending resultRTC for labs and pelvic u/sED precaution s reviewed Time spent in visit is a total of 30 mins with at least 50% of visit consisting of counseling and review of plan of care. Venereal d isease screening [id number] Z11.3 [id number] Quinn Nelson MD [facility] [address],[place] [address] 04/21/2022 09:57:51 04/21/2022 10:56:06 Abnormal uterine bleeding 6453904483 9100 N93.9 [id number] JANICE Ghosh [place] [address],[place] [address] 04/27/2022 09:31:20 04/27/2022 10:42:57 Abnormal uterine bleeding 3632110874 9100 N93.9 We discussed the various causes of AUB and workup neededPelv ic u/s : 1 small fibroid, Endo 10MM, Normal appearing ovariesI recommend endometria l biopsy be performed to due length of menses and BMI >30R/B of EMB discussed and accepted by patientPat ient agrees to this plan, she would like to RTC for EMB - declines to have it done todayWe discussed options to help with painful/he misa menses : Declines POP, Mirena IUD, and depo at this time.She would like to explore the possibilit y of a hysterecto myWill do EMB then schedule MD consult for possible hysterecto my Time spent in visit is a total of 20 mins with at least 50% of visit consisting of counseling and review of plan of care. Anemia 036109275 D64.9 She started taking her iron dailyWill repeat labs in 6 weeks [id number] JANICE Ghosh [facility] [address],[place] [address] 05/12/2022 11:22:49 05/12/2022 12:58:45 Abnormal uterine bleeding [id number] 9100 N93.9 EMB performed without any immediate complicati ons1 pass performed - scant tissue collectedU nable to pass pipelle through cervical os for any additional passesShe will f/u for MD consult next week, appointmen t scheduledS he is interested in surgical interventi on for her AUB ED precaution s discussed (abdominal pains, heavy bleeding, signs of infection, etc) [id number] Quinn Nelson MD [facility] [address] [address] 05/20/2022 09:32:39 05/20/2022 10:24:26 Menorrhagia 900492640 N92.0 This patient is a 37-year-ol d female presents for heavy vaginal bleeding. She has longstandi ng very heavy bleeding. Her menses are regular. However, they require double protection . Patient has accidents, getting blood on her bedding and clothing. Is affected work. She changes a pad or tampon every hour. She leaks blood around the pad and tampon. This bleeding has a profound impact on her quality of life and her activities of daily living. she has blood on her clothing and working has a change of clothes to work. She has a fibroid uterus that is enlarged. We discussed treatment options in great detail. Talked about medical treatment options, the risks, benefits, and alternativ es to those. Talked about surgical options. Talked about endometria l ablation we talked hysterecto my. The patient like to proceed with definitive surgical treatment. Talked about hysterecto my in detail. We made a decision to perform surgery. We spent 40 minutes face-to-fa ce. She has already had salpingect anuj. This would be a robotic assisted total laparoscop ic hysterecto my. We will proceed with scheduling and prior authorizat ion. Uterine leiomyoma [id number] 05 D25.9 [id number] Quinn Nelson MD [facility] [address] [address] 06/10/2022 11:38:48 06/10/2022 14:47:53 Screening procedure 35217933 Z13.9 Menorrhagia 500525882 N9 2.0 ablation was performed it went well, patient tolerated it well Postoperative pain 73692 9007 G89.18 Postoperative visit 1836 51117 Z09 [id number] Quinn Nelson MD [facility] [address] [address] 06/17/2022 10:45:12 06/17/2022 12:55:45 Menorrhagia 153948078 N92.0 37-year-ol d female presents for follow-up for menorrhagi a. She has no complaints . She has some watery vaginal discharge. She denies any foul-smell ing vaginal discharge, nausea, vomiting, fever, chills. She was treated with endometria l ablation 1 week ago. She will follow up as needed. [id number] JANICE Ghosh [facility] [address] [address] 05/26/2023 10:28:59 05/26/2023 11:00:49 Gynecologic examination 09539525 Z01.419 Z11.51 WWEBC - BTLpap updatedSTI testing declinedle ft breast u/s ordered for further evaluation of breast tenderness UTD with PCP for routine labsRTC in 1 year or sooner if needed Take Calcium with Vitamin D daily if not receiving in daily diet.It is strongly advised to have an annual flu shot and up can obtain at most pharmacies . If you have not had a TDap shot in the last 10 years you should obtain one as well.Discu ssed with patient & provided with informatio n regarding Gardisil vaccine to prevent the 4 strains for HPV that cause cervical cancer if under age 26.Encoura ge safe sexual practices, to use condoms and limit partners if not already in a monogamous relationsh ip.Do monthly self breast exams.Enga ge in daily exercise of low impact aerobic exercise 45-60 minutes 4-5 times weekly. Avoid tobacco and illicit drugs as well as using moderation with alcohol intake less than 1-2 8 oz beverages daily. This lifestyle behavior pattern will lead to less health conditions and longer life span. If BMI greater than 25 dietary consult advised.Jesús cuevas received above instructio ns, and questions have been answered. If you have any questions please call or respond to this email.Shaye ent was made aware of the patient portal and may obtain a paper copy of today's plan if desired. Tenderness of breast 552 73379 N64.4 [id number] JANICE Ghosh [facility] [address],[facility] [place] [address] 01/04/2024 11:12:38 01/04/2024 14:11:07 Abnormal uterine bleeding [id number] 9100 N93.9 gc/ct/tric h testing sentdiscus sed AUB post ablation and recommende d updated pelvic u/spelvic u/s orderedMD u/s f/u scheduledq uestions answered, precaution s discussed Time spent in visit is a total of 25 mins with at least 50% of visit consisting of counseling and review of plan of care. [id number] Quinn Nelson MD [facility] [address] [address] 01/11/2024 17:30:45 01/12/2024 03:03:19 Abnormal uterine bleeding [id number] 9100 N93.9 [id number] Quinn Nelson MD [facility] [address],[facility] [place] [address] 01/25/2024 11:25:05 01/25/2024 17:49:37 Menorrhagia 519295796 N92.0 This patient is a 38-year-ol d female presents for heavy vaginal bleeding. She has longstandi ng very heavy bleeding. Her menses are regular. However, they require double protection . Patient has accidents, getting blood on her bedding and clothing. Is affected work. She changes a pad or tampon every hour. She leaks blood around the pad and tampon. This bleeding has a profound impact on her quality of life and her activities of daily living. Patient has failed endometria l ablation. She would like to proceed with definitive surgery. We agreed to total laparoscop ic hysterecto my and bilateral salpingect anuj. The patient understand s the procedure. The procedure was described to the patient in great detail. the patient also understand s the risks. The risks were also explained in detail. She understand s that injuries May occur during surgery. She understand s these injuries can result in hospitaliz ation, more surgery, and severe illness. She understand s there is risk of hemorrhage and infection. We spent more than 40 minutes face-to-fa ce. More than 50% was counseling . We made a decision to perform surgery. [id number] Quinn Nelson MD [place] [address],[facility] [place] [place] [address] 03/19/2024 12:05:36 03/19/2024 13:32:35 Menorrhagia [id number] N92.0 This patient is a 38-year-ol d female with severe menorrhagi a. We have agreed to perform total laparoscop ic hysterecto my bilateral salpingect anuj. She understand s the risks, benefits, and alternativ es. She has completed the informed consent process and is ready to proceed. [id number] Quinn Nelson MD [place] [address],[facility] [place] [address] 04/01/2024 11:09:52 04/01/2024 12:02:35 Postoperative care [id number] Z48.89 female Patient presents for postop follow-up. She is 1 week postop from a total laparoscop ic hysterecto my bilateral salpingect anuj. She has no complaints . Her incisions are clean dry and intact. She is recovering normally. She will follow-up as needed. [id number] Quinn Nelson MD [place] [address],[facility] [place] [address] 05/30/2024 12:15:19 05/30/2024 13:04:42 Gynecologic examination [id number] Z01.419 Annual gynecologi rene exam performed. Patient will come back in a year unless there are new symptoms. Suggest Calcium with Vitamin D if not eating in diet. Patient advised to get annual flu shot. Recommend yearly physicals and preform monthly breast exams. Genetic testing is available for patients with family history of cancer. Engage in safe sexual practices, use condoms. Encouraged to have daily exercise. Avoid tobacco and illicit drugs, moderation of alcohol. If BMI greater than 25 dietary consult advised. If you have any questions please call or email. Pap smear- na laboratory evaluation - done [id number] Quinn Nelson MD [place] [address],[place] [address] 09/27/2024 10:26:23 09/30/2024 10:49:07 Surgical incision wound of skin [id number] R23.8 39-year-ol d female who is 6 months postop from a hysterecto my. She was complainin g of discharge from a surgical site underneath the umbilicus. The umbilicus skin is healed and normal appearing with a little bit of scar forming. Small keloid. All normal. No discharge. She will follow up as needed. Health Concerns Section Related Observation LastModified by Organization Detai ls LastModified Time None Recorded Concern Status LastModified by Organization Details LastModified Time None Recorded Advance Directives Directive N: Payers Insurance Date Sequence Insurance Name Policy Number Policy Deng Covered Member ID Deng Member ID Guarantor Name 09/26/2024 1 [employer] - [facility] (PP[facility]) [id number] Levy Gao [id number] Ivaniakristina Morris Notes Date Note Type Note Provider Name and Address Organization Details Recorded Time 01/25/20 24 text/htm l This patient is a 38-year-old female presents for heavy vaginal bleeding. She has longstanding very heavy bleeding. Her menses are regular. However, they require double protection. Patient has accidents, getting blood on her bedding and clothing. Is affected work. She changes a pad or tampon every hour. She leaks blood around the pad and tampon. This bleeding has a profound impact on her quality of life and her activities of daily living. Patient has failed endometrial ablation. She would like to proceed with definitive surgery. We agreed to total laparoscopic hysterectomy and bilateral salpingectomy. The patient understands the procedure. The procedure was described to the patient in great detail. the patient also understands the risks. The risks were also explained in detail. She understands that injuries May occur during surgery. She understands these injuries can result in hospitalization, more surgery, and severe illness. She understands there is risk of hemorrhage and infection. Quinn Nelson MD [address], [place], [address], [facility] 01/25/2024 17:36:01 03/19/20 24 text/htm l Generic HPI TemplateReported by Patient this patient is a 39-year-old female with severe menorrhagia. We have agreed to perform total laparoscopic hysterectomy and bilateral salpingectomy The patient understands the procedure. The procedure was described to the patient in great detail. the patient also understands the risks. The risks were also explained in detail. She understands that injuries May occur during surgery. She understands these injuries can result in hospitalization, more surgery, and severe illness. She understands there is risk of hemorrhage and infection. Quinn Nelson MD [address], [place], [address], [facility] 03/19/2024 13:20:09 04/01/20 24 text/htm l female Patient presents for postop follow-up. She is 1 week postop from a total laparoscopic hysterectomy bilateral salpingectomy. She has no complaints. Her incisions are clean dry and intact. She is recovering normally. She will follow-up as needed. Quinn Nelson MD [address], [place], [address], [facility] 04/01/2024 12:01:48 05/30/20 24 text/htm l Annual GYNReported by PatientHistoryFor history, patient reportsno gynecologic complaints.Genitourinary symptomsFor urinary symptoms, patient reportsno hematuria. For vulva, patient reportsno genital lesion. For vagina, patient reportsnormal vaginal discharge.Breast symptomsFor breast, patient reportsno breast painandno breast lump.Endocrine symptomsFor sexual complaints, patient reportssexual complaints (pressure with intercourse, post hysterectomy). For menopausal symptoms, patient reportsno menopausal symptoms.Psychological symptomsFor psychological symptoms, patient reportsno depressionandno anxiety.Preventative measuresFor preventive measures, patient reportsencourage self breast examinationandencourage regular exercise. Quinn Nelson MD [address], [place], [address], [facility] 05/30/2024 13:04:01 09/27/19 25 text/htm l 39-year-old female who is 6 months postop from a hysterectomy. She was complaining of discharge from a surgical site underneath the umbilicus. The umbilicus skin is healed and normal appearing with a little bit of scar forming. Small keloid. All normal. No discharge. She will follow up as needed. Quinn Nelson MD [address], [place], [address], [facility] 09/27/2024 17:33:56 OBGyn Episode Ob Episode Information Episode Created Date Number of Fetuses Patient Bloodtype Patient rh Status Prepregnancy Weight lbs Domestic Partner Domestic Partner Phone Father Name [employer] Operator Status 04/14/20 22 1 CLOSED Fetus Data First Name Last Name Admitted to NICU Weight (g) Sex Living Outcome Pediatric Complications Fetus ID Race Codes Race Delivery Type 3742.13 4 F Full Term [id number] Repeat Jayant Calculation Initial Jayant Date Initial Exam Date Initial Exam Provider Initial Ultrasound Date Last Menstrual Period Date Ultra Sound Weeks Gestation 0 Eighteen To Twenty Week Jayant Update Ultra Sound Date Fundal Height At Umbil Quickening Date Ultra Sound Latest Weeks Gestation Final Jayant Confirmed By Final Jayant Confirmed Date Final Jayant Date Ultra Sound Latest Days Gestation 0 0 Menstrual History Last Menstrual Date Menses Monthly On Bcp Conception Prior Menses Frequency Hcg Plus Date Menarche Onset Age Delivery Information Delivery Date Delivery Type Labor Anesthesia Weeks Gestation Incision Type Labor Labor Length Hrs Delivered By Post Complications Tubal Sterilization Discharge Date Comments 5 39 Discharge Information Feeding Method Contraceptive Method Maternal HG B and HCT Levels Ob Episode Information Episode Created Date Number of Fetuses Patient Bloodtype Patient rh Status Prepregnancy Weight lbs Domestic Partner Domestic Partner Phone Father Name [employer] Operator Status 04/14/20 22 1 CLOSED Fetus Data First Name Last Name Admitted to NICU Weight (g) Sex Living Outcome Pediatric Complications Fetus ID Race Codes Race Delivery Type 3345.24 1 F Full Term 24250 Primary Jayant Calculation Initial Jayant Date Initial Exam Date Initial Exam Provider Initial Ultrasound Date Last Menstrual Period Date Ultra Sound Weeks Gestation 0 Eighteen To Twenty Week Jayant Update Ultra Sound Date Fundal Height At Umbil Quickening Date Ultra Sound Latest Weeks Gestation Final Jayant Confirmed By Final Jayant Confirmed Date Final Jayant Date Ultra Sound Latest Days Gestation 0 0 Menstrual History Last Menstrual Date Menses Monthly On Bcp Conception Prior Menses Frequency Hcg Plus Date Menarche Onset Age Delivery Information Delivery Date Delivery Type Labor Anesthesia Weeks Gestation Incision Type Labor Labor Length Hrs Delivered By Post Complications Tubal Sterilization Discharge Date Comments 4 39 Discharge Information Feeding Method Contraceptive Method Maternal HG B and HCT Levels Ob Episode Information Episode Created Date Number of Fetuses Patient Bloodtype Patient rh Status Prepregnancy Weight lbs Domestic Partner Domestic Partner Phone Father Name [employer] Operator Status 04/14/20 22 1 CLOSED Fetus Data First Name Last Name Admitted to NICU Weight (g) Sex Living Outcome Pediatric Complications Fetus ID Race Codes Race Delivery Type 3742.13 4 F Full Term [id number] Repeat Jayant Calculation Initial Jayant Date Initial Exam Date Initial Exam Provider Initial Ultrasound Date Last Menstrual Period Date Ultra Sound Weeks Gestation 0 Eighteen To Twenty Week Jayant Update Ultra Sound Date Fundal Height At Umbil Quickening Date Ultra Sound Latest Weeks Gestation Final Jayant Confirmed By Final Jayant Confirmed Date Final Jayant Date Ultra Sound Latest Days Gestation 0 0 Menstrual History Last Menstrual Date Menses Monthly On Bcp Conception Prior Menses Frequency Hcg Plus Date Menarche Onset Age Delivery Information Delivery Date Delivery Type Labor Anesthesia Weeks Gestation Incision Type Labor Labor Length Hrs Delivered By Post Complications Tubal Sterilization Discharge Date Comments 7 39 Discharge Information Feeding Method Contraceptive Method Maternal HG B and HCT Levels Ob Episode Information Episode Created Date Number of Fetuses Patient Bloodtype Patient rh Status Prepregnancy Weight lbs Domestic Partner Domestic Partner Phone Father Name [employer] Operator Status 05/25/20 23 1 CLOSED Fetus Data First Name Last Name Admitted to NICU Weight (g) Sex Living Outcome Pediatric Complications Fetus ID Race Codes Race Delivery Type , Induced [id number] Jayant Calculation Initial Jayant Date Initial Exam Date Initial Exam Provider Initial Ultrasound Date Last Menstrual Period Date Ultra Sound Weeks Gestation 0 Eighteen To Twenty Week Jayant Update Ultra Sound Date Fundal Height At Umbil Quickening Date Ultra Sound Latest Weeks Gestation Final Jayant Confirmed By Final Jayant Confirmed Date Final Jayant Date Ultra Sound Latest Days Gestation 0 0 Menstrual History Last Menstrual Date Menses Monthly On Bcp Conception Prior Menses Frequency Hcg Plus Date Menarche Onset Age Delivery Information Delivery Date Delivery Type Labor Anesthesia Weeks Gestation Incision Type Labor Labor Length Hrs Delivered By Post Complications Tubal Sterilization Discharge Date Comments 2 Discharge Information Feeding Method Contraceptive Method Maternal HG B and HCT Levels
[2025-08-01 14:15] LABS: Strep Group A RT-PCR NOT DETECTED (Negative)
[2025-08-01 14:28] LABS: Influenza A QL RT-PCR Negative (Negative); Influenza B QL RT-PCR Negative (Negative); RSV RNA, RT-PCR Negative (Negative); SARS-CoV-2 RNA PCR Negative (Negative)
== END 2025-08-01 13:34 | disposition home or self-care (01) ==
PROVIDERS: PCP Family Medicine
DX: J02.9 Acute pharyngitis, unspecified (principal); Z20.822 Contact with and (suspected) exposure to COVID-19
CPT/HCPCS: 87637; 87651